=== PATIENT | male | born 1950 | race Asian ===

== ENCOUNTER → 2021-08-22 | Outpatient (CLI) | payer MEDICARE, MEDICAID ==
[2021-08-22 10:03] LABS: Basophils # (auto) 0 10 ^3/uL (0-0.2); Basophils % (auto) 0.7 % (0.0-2.0); Eosinophils # (auto) 0.1 10 ^3/uL (0-0.8); Hematocrit 39.2 % (41.0-53.0); Lymphocytes # (auto) 1.3 10 ^3/uL (0.4-5.4); Lymphocytes % (auto) 24.8 % (10.0-50.0); Mean Corpuscular Hemoglobin 25.1 pg (28.0-32.0); Mean Corpuscular Hgb Conc. 33.3 g/dL (32.0-36.0); Mean Corpuscular Volume 75.5 fL (80.0-100.0); Monocytes # (auto) 0.5 10 ^3/uL (0-1.3); Monocytes % (auto) 9.4 % (0.0-12.0); Neutrophils # (auto) 3.3 10 ^3/uL (1.6-8.6); Neutrophils % (auto) 64.1 % (37.0-80.0); Nucleated Red Blood Cells % 0.2 %; Red Blood Cells 5.19 10^6/uL (4.5-5.90); Red Cell Distribution Width 16.6 % (11.8-14.3); White Blood Cell 5.2 10^3/uL (4.4-10.8)
[2021-08-22 10:18] LABS: Urine Bacteria FEW /hpf (None Seen); Urine Blood Negative /uL (Negative); Urine Hyaline Cast MANY /lpf (0 - 2); Urine Mucus FEW (None Seen); Urine Specific Gravity 1.018 (1.001-1.035); Urine WBC 3 /hpf (0 - 3)
[2021-08-22 10:32] LABS: Albumin 3.9 g/dL (3.4-5.0); Calcium 9.5 mg/dL (8.5-10.1); Potassium 4.1 mmol/L (3.5-5.1)
[2021-08-22 10:39] LABS: BUN/Creatinine Ratio 6.7; Bilirubin, Total 1.4 mg/dL (0.2-1.0)
== END | disposition home or self-care (01) ==
LOC: LAB 09:26
PROVIDERS: ATTEND Internal Medicine Nephrology
DX: G60.9 Hereditary and idiopathic neuropathy, unspecified (principal)
CPT/HCPCS: 36415; 80053; 80061; 81001; 82043; 82306; 83036; 84439; 85025

== ENCOUNTER → 2021-09-05 | Outpatient (CLI) | payer MEDICARE, MEDICAID ==
[2021-09-05 11:16] LABS: Albumin 3.9 g/dL (3.4-5.0); BUN/Creatinine Ratio 6.4; Calcium 9.9 mg/dL (8.5-10.1); Potassium 4.6 mmol/L (3.5-5.1)
[2021-09-05 11:30] LABS: Bilirubin, Total 0.6 mg/dL (0.2-1.0); Total Protein 8.7 g/dL (6.4-8.2)
[2021-09-07 10:03] LABS: Hepatitis B Surface Antibody Positive (Negative)
[2021-09-07 12:46] LABS: Hepatitis B Core IgM Negative
== END | disposition home or self-care (01) ==
LOC: LAB 10:25
PROVIDERS: ATTEND Internal Medicine Nephrology
DX: R74.01 Elevation of levels of liver transaminase levels (principal)
CPT/HCPCS: 36415; 80053; 86703; 86705; 86706; 86803; 87340

== ENCOUNTER 2022-02-07 14:39 | Emergency (ER) | payer MEDICARE, MEDICAID ==
[~2022-02-07] VITALS: Ht 177.8 cm; Wt 79.4 kg
[2022-02-07 17:24] VITALS: BP 151/81
[2022-02-07 18:23] LABS: Urine WBC None Seen /hpf (0 - 3)
[2022-02-07 18:40] LABS: Urine Bacteria NONE SEEN /hpf (None Seen); Urine Blood Negative /uL (Negative); Urine Specific Gravity 1.003 (1.001-1.035)
== END 2022-02-07 17:53 | disposition home or self-care (01) ==
LOC: EDBD 14:39 → ER 14:39
DX: F10.129 Alcohol abuse with intoxication, unspecified (principal); Y90.8 Blood alcohol level of 240 mg/100 ml or more
CPT/HCPCS: 81001

== ENCOUNTER 2022-06-27 21:33 | Inpatient (IN) | payer MEDICARE, MEDICAID ==
[~2022-06-27] VITALS: Ht 170.2 cm; Wt 57.0 kg
[2022-06-27 23:29] LABS: BUN/Creatinine Ratio 5.2; Calcium 9.3 mg/dL (8.5-10.1); Magnesium 2.2 mg/dL (1.6-2.6); Potassium 4.1 mmol/L (3.5-5.1)
[2022-06-27 23:30] LABS: Hematocrit 40.4 % (41.0-53.0); Hemoglobin 13.2 g/dL (13.5-17.5); Mean Corpuscular Hemoglobin 24.9 pg (28.0-32.0); Mean Corpuscular Hgb Conc. 32.7 g/dL (32.0-36.0); Mean Corpuscular Volume 76.1 fL (80.0-100.0); Red Cell Distribution Width 14.9 % (11.8-14.3); White Blood Cell 4.6 10^3/uL (4.4-10.8)
[2022-06-27 23:32] LABS: Bilirubin, Total 0.7 mg/dL (0.2-1.0); Total Protein 8.7 g/dL (6.4-8.2)
[2022-06-27 23:34] LABS: Basophils % (manual) 0 (0.0-2.0); Blast Cells 0; Eosinophils % (manual) 0 (0-7); Metamyelocytes % 0; Myelocytes % 0; Promyelocytes % 0; Reactive Lymphocytes 0
[2022-06-28 00:08] LABS: Blood Alcohol 365.3 mg/dL (0-5)
[2022-06-28 01:12] LABS: Band Neutrophils % (manual) 1; Lymphocytes % (manual) 20 (10.0-50.0); Monocytes % (manual) 12 (0-12)
[2022-06-28] MEDS ORDERED: ONDANSETRON HCL 4 MG/2 ML VIAL IV ONE (01:15)
[2022-06-28] MEDS ORDERED: SODIUM CHLORIDE 0.9% 1,000 ML IV ONE ×5 (01:15→21:45)
[2022-06-28 08:38] LABS: Urine WBC None Seen /hpf (0 - 3)
[2022-06-28 08:43] LABS: Urine Bacteria NONE SEEN /hpf (None Seen); Urine Blood Negative /uL (Negative); Urine Specific Gravity 1.005 (1.001-1.035)
[2022-06-28] MEDS ORDERED: THIAMINE 100mg/ml INJ (200mg/2ml VIAL) IV ONE (10:15)
[2022-06-28 10:33] LABS: Amphetamine Screen, Urine NEGATIVE (NEGATIVE); Barbiturate Scree,Urine NEGATIVE (NEGATIVE); Benzodiazephine Screen, Urine NEGATIVE (NEGATIVE); Cannabinoid Screen, Urine NEGATIVE (NEGATIVE); Cocaine Screen, Urine NEGATIVE (NEGATIVE); Opiate Scree,Urine NEGATIVE (NEGATIVE); Phencyclidine Screen, Urine NEGATIVE (NEGATIVE)
[2022-06-28] MEDS ORDERED: LORazepam 2MG/ML-1ML VIAL IV ONE ×2 (17:45→21:45)
[2022-06-28 19:12] LABS: Eosinophils # (auto) 0 10 ^3/uL (0-0.8); Hemoglobin 12.6 g/dL (13.5-17.5)
[2022-06-28 19:14] LABS: Basophils # (auto) 0.1 10 ^3/uL (0-0.2); Basophils % (auto) 2.8 % (0.0-2.0); Eosinophils % (auto) 0.4 % (0.0-7.0); Hematocrit 38.9 % (41.0-53.0); Lymphocytes # (auto) 0.7 10 ^3/uL (0.4-5.4); Lymphocytes % (auto) 13.4 % (10.0-50.0); Mean Corpuscular Hemoglobin 24.6 pg (28.0-32.0); Mean Corpuscular Hgb Conc. 32.4 g/dL (32.0-36.0); Monocytes # (auto) 0.5 10 ^3/uL (0-1.3); Monocytes % (auto) 10.3 % (0.0-12.0); Neutrophils # (auto) 3.7 10 ^3/uL (1.6-8.6); Neutrophils % (auto) 73.1 % (37.0-80.0); Red Blood Cells 5.11 10^6/uL (4.5-5.90); Red Cell Distribution Width 15.4 % (11.8-14.3)
[2022-06-28 19:29] LABS: Albumin 3.7 g/dL (3.4-5.0); BUN/Creatinine Ratio 4.9; Calcium 8.3 mg/dL (8.5-10.1); Magnesium 1.6 mg/dL (1.6-2.6); Potassium 4.3 mmol/L (3.5-5.1)
[2022-06-28 19:31] LABS: Bilirubin, Total 1.3 mg/dL (0.2-1.0); Phosphorus 1.7 mg/dL (2.5-4.90); Total Protein 7.8 g/dL (6.4-8.2)
[2022-06-28] MEDS ORDERED: THIAMINE HCL 100 MG TAB PO ONE (21:45)
[2022-06-28] MEDS ORDERED: NITROGLYCERIN 0.4 MG SL TAB SL PRN (21:45)
[2022-06-28] MEDS ORDERED: MULTIPLE VITAMIN TAB PO ONE (21:45)
[2022-06-28] MEDS ORDERED: MORPHINE SULFATE INJ 2 MG/ml SYRG IV PRN ×2 (21:45→23:45)
[2022-06-28] MEDS ORDERED: FOLIC ACID 1 MG TAB PO ONE (21:45)
[2022-06-28] MEDS ORDERED: CARVEDILOL 12.5 MG TAB PO ONE (22:45)
[2022-06-28] MEDS ORDERED: cefTRIAXone 1GM/50ML D5W 50 ML IV ONE (22:45)
[2022-06-28] MEDS ORDERED: AZITHROMYCIN 500MG/ 250ML 250 ML IV ONE (22:45)
[2022-06-28] MEDS: chlordiazePOXIDE HCL 25 MG CAP PO SCH (23:18)
[2022-06-28 23:34] LABS: INR 0.99 (0.9-1.15)
[2022-06-28] MEDS: MAGNESIUM SULFATE 1GM/100ML 100 ML IV SCH ×2 (23:35→23:44)
[2022-06-28 23:39] LABS: Magnesium 1.5 mg/dL (1.6-2.6)
[2022-06-29 02:47] VITALS: BP 156/90
[2022-06-29] MEDS: hydrALAZINE HCL 20 MG/ML VL IV PRN (03:19)
[2022-06-29 05:00] VITALS: BP 140/71
[2022-06-29] MEDS: chlordiazePOXIDE HCL 25 MG CAP PO SCH ×2 (05:16→13:50)
[2022-06-29 06:08] LABS: Red Blood Cells 4.73 10^6/uL (4.5-5.90); Red Cell Distribution Width 15.3 % (11.8-14.3)
[2022-06-29 06:11] LABS: Hematocrit 35.9 % (41.0-53.0); Hemoglobin 11.7 g/dL (13.5-17.5); Mean Corpuscular Hemoglobin 24.8 pg (28.0-32.0); Mean Corpuscular Hgb Conc. 32.8 g/dL (32.0-36.0); Mean Corpuscular Volume 75.8 fL (80.0-100.0); White Blood Cell 3.8 10^3/uL (4.4-10.8)
[2022-06-29 06:32] LABS: Basophils % (manual) 0 (0.0-2.0); Blast Cells 0; Metamyelocytes % 0; Myelocytes % 0; Promyelocytes % 0; Reactive Lymphocytes 0
[2022-06-29 06:37] LABS: Calcium 7.8 mg/dL (8.5-10.1); Potassium 3.5 mmol/L (3.5-5.1)
[2022-06-29 06:39] LABS: BUN/Creatinine Ratio 9.4
[2022-06-29 08:00] VITALS: BP_SYST 124; BP_SYST 158; BP_DIAS 48; BP_DIAS 84
[2022-06-29 08:46] LABS: Band Neutrophils % (manual) 13; Eosinophils % (manual) 1 (0-7); Lymphocytes % (manual) 21 (10.0-50.0); Monocytes % (manual) 4 (0-12)
[2022-06-29] MEDS: cefTRIAXone 1GM/50ML D5W 50 ML IV SCH (08:56)
[2022-06-29] MEDS: FOLIC ACID 1 MG TAB PO SCH (08:57)
[2022-06-29] MEDS: THIAMINE HCL 100 MG TAB PO SCH (08:57)
[2022-06-29] MEDS: MULTIPLE VITAMIN TAB PO SCH (08:57)
[2022-06-29] MEDS: CARVEDILOL 12.5 MG TAB PO SCH ×2 (08:58→21:52)
[2022-06-29] MEDS ORDERED: AZITHROMYCIN 500MG/ 250ML 250 ML IV SCH (10:00)
[2022-06-29] MEDS: NICOTINE 7MG/24HR TOPICAL PATCH TD SCH (10:04)
[2022-06-29 12:00] VITALS: BP 122/67
[2022-06-29] MEDS: CLINDAMYCIN 300MG IV 50 ML IV SCH ×2 (13:50→22:02)
[2022-06-29] MEDS: LORazepam 2MG/ML-1ML VIAL IV PRN ×2 (15:05→21:45)
[2022-06-29 16:00] VITALS: BP 162/78
[2022-06-29 22:00] VITALS: BP 167/76
[2022-06-30] MEDS: chlordiazePOXIDE HCL 25 MG CAP PO SCH ×2 (00:59→13:00)
[2022-06-30 05:00] VITALS: BP 143/80
[2022-06-30] MEDS: CLINDAMYCIN 300MG IV 50 ML IV SCH ×3 (05:30→22:43)
[2022-06-30 08:57] VITALS: BP 176/61
[2022-06-30] MEDS: NICOTINE 7MG/24HR TOPICAL PATCH TD SCH (10:10)
[2022-06-30] MEDS: THIAMINE HCL 100 MG TAB PO SCH (10:15)
[2022-06-30] MEDS: MULTIPLE VITAMIN TAB PO SCH (10:15)
[2022-06-30] MEDS: FOLIC ACID 1 MG TAB PO SCH (10:15)
[2022-06-30] MEDS: CARVEDILOL 12.5 MG TAB PO SCH ×2 (10:17→22:44)
[2022-06-30] MEDS: cefTRIAXone 1GM/50ML D5W 50 ML IV SCH (10:28)
[2022-06-30 13:00] VITALS: BP 183/90
[2022-06-30] MEDS: LORazepam 2MG/ML-1ML VIAL IV PRN (16:00)
[2022-06-30] MEDS ORDERED: ACETAMINOPHEN 325 MG TAB PO PRN (16:30)
[2022-06-30 16:53] VITALS: BP 161/89
[2022-06-30 22:00] VITALS: BP 135/89
[2022-07-01] MEDS: chlordiazePOXIDE HCL 25 MG CAP PO SCH ×2 (00:11→12:39)
[2022-07-01] MEDS: CLINDAMYCIN 300MG IV 50 ML IV SCH ×2 (06:02→14:30)
[2022-07-01 09:00] VITALS: BP 134/67
[2022-07-01] MEDS ORDERED: FOLI1TAB6 PO (09:37)
[2022-07-01] MEDS ORDERED: CHL25C PO (09:37)
[2022-07-01] MEDS ORDERED: CLIN300C8 PO (09:37)
[2022-07-01] MEDS ORDERED: THIA100T13 PO (09:37)
[2022-07-01 09:50] VITALS: BP 134/67
[2022-07-01] MEDS: FOLIC ACID 1 MG TAB PO SCH (10:24)
[2022-07-01] MEDS: cefTRIAXone 1GM/50ML D5W 50 ML IV SCH (10:24)
[2022-07-01] MEDS: CARVEDILOL 12.5 MG TAB PO SCH (10:25)
[2022-07-01] MEDS: MULTIPLE VITAMIN TAB PO SCH (10:25)
[2022-07-01] MEDS: THIAMINE HCL 100 MG TAB PO SCH (10:26)
[2022-07-01] MEDS: NICOTINE 7MG/24HR TOPICAL PATCH TD SCH (10:27)
[2022-07-01 13:00] VITALS: BP 127/70
[2022-07-01 17:00] VITALS: BP 164/95
[2022-07-01] MEDS: hydrALAZINE HCL 20 MG/ML VL IV PRN (17:38)
[2022-07-02] MEDS ORDERED: chlordiazePOXIDE HCL 25 MG CAP PO SCH (01:00)
== END 2022-07-01 19:06 | disposition home or self-care (01) | DRG 91 ==
LOC: ER 21:33 → EDBD 21:33 → TELE 06-28 22:22 → TELE-CENTR 06-28 23:37
PROVIDERS: ADMIT Registered Nurse; ATTEND Family Medicine
DX: G92.8 Other toxic encephalopathy (principal); J69.0 Pneumonitis due to inhalation of food and vomit; F10.139 Alcohol abuse with withdrawal, unspecified; F17.210 Nicotine dependence, cigarettes, uncomplicated; I10 Essential (primary) hypertension; S40.011A Contusion of right shoulder, initial encounter; E86.0 Dehydration; F10.129 Alcohol abuse with intoxication, unspecified; D69.59 Other secondary thrombocytopenia; D69.6 Thrombocytopenia, unspecified; Y90.8 Blood alcohol level of 240 mg/100 ml or more; Z20.822 Contact with and (suspected) exposure to COVID-19; E78.00 Pure hypercholesterolemia, unspecified; Z71.41 Alcohol abuse counseling and surveillance of alcoholic; W18.39XA Other fall on same level, initial encounter; Y93.89 Activity, other specified; Y92.89 Other specified places as the place of occurrence of the external cause; Y99.8 Other external cause status
CPT/HCPCS: 36415; 70450; 71045; 72125; 73030; 73070; 76705; 80048; 80053; 80061; 80307; 80320; 81001; 82150; 83036; 83690; 83735; 84100; 84443; 85007; 85025; 85027; 85610; 87040; 87426; 87804; 93005; 93306; 96361; 96374; 96375; G0378; J0696; J2405; J3490

== ENCOUNTER → 2022-10-09 | Outpatient (CLI) | payer MEDICARE, MEDICAID ==
[~2022-10-09] MED LIST: CHL25C PO; CLIN300C8 PO; FOLI1TAB6 PO; THIA100T13 PO
[2022-10-09 12:10] LABS: Basophils # (auto) 0 10 ^3/uL (0-0.2); Eosinophils # (auto) 0.1 10 ^3/uL (0-0.8); Hemoglobin 12.9 g/dL (13.5-17.5); Monocytes # (auto) 0.4 10 ^3/uL (0-1.3); Red Cell Distribution Width 14.8 % (11.8-14.3); White Blood Cell 4.5 10^3/uL (4.4-10.8)
[2022-10-09 12:13] LABS: Basophils % (auto) 1.1 % (0.0-2.0); Eosinophils % (auto) 1.4 % (0.0-7.0); Hematocrit 39.7 % (41.0-53.0); Lymphocytes # (auto) 1.7 10 ^3/uL (0.4-5.4); Lymphocytes % (auto) 38.4 % (10.0-50.0); Mean Corpuscular Hemoglobin 23.6 pg (28.0-32.0); Mean Corpuscular Hgb Conc. 32.5 g/dL (32.0-36.0); Mean Corpuscular Volume 72.7 fL (80.0-100.0); Neutrophils # (auto) 2.3 10 ^3/uL (1.6-8.6); Neutrophils % (auto) 50.1 % (37.0-80.0); Nucleated Red Blood Cells % 1.2 %; Red Blood Cells 5.47 10^6/uL (4.5-5.90)
[2022-10-09 12:21] LABS: Albumin 3.8 g/dL (3.4-5.0); BUN/Creatinine Ratio 12.8; Calcium 10.2 mg/dL (8.5-10.1); Potassium 4.4 mmol/L (3.5-5.1); Total Protein 8.2 g/dL (6.4-8.2)
[2022-10-09 12:23] LABS: Bilirubin, Total 0.4 mg/dL (0.2-1.0)
[2022-10-09 12:35] LABS: Urine Bacteria NONE SEEN /hpf (None Seen); Urine Blood Negative /uL (Negative); Urine WBC 1 /hpf (0 - 3)
== END | disposition home or self-care (01) ==
LOC: LAB 10:47
PROVIDERS: ATTEND Internal Medicine
DX: I10 Essential (primary) hypertension (principal); D50.9 Iron deficiency anemia, unspecified; D69.6 Thrombocytopenia, unspecified; K70.9 Alcoholic liver disease, unspecified; Z29.9 Encounter for prophylactic measures, unspecified
CPT/HCPCS: 36415; 80053; 80061; 81001; 83036; 84439; 84443; 85025

== ENCOUNTER 2024-03-18 18:17 | Emergency (ER) | payer MEDICARE, MEDICAID ==
[~2024-03-18] VITALS: Ht 165.1 cm; Wt 68.1 kg
[~2024-03-18 18:17] MED LIST changes: +CLIN1CAP70 PO; -CLIN300C8 PO; +FOLI-119 PO; -FOLI1TAB6 PO
[2024-03-18] MEDS: SODIUM CHLORIDE 0.9% 1,000 ML IV ONE (18:56)
[2024-03-18] MEDS: ONDANSETRON HCL 4 MG/2 ML VIAL IV ONE (19:50)
[2024-03-18] MEDS: ACETAMINOPHEN IV 1000 MG/100ML (10MG/ML) IV STA (19:53)
[2024-03-18 19:59] LABS: Chloride 96 mmol/L (98-107); Potassium 4.1 mmol/L (3.5-5.1); Sodium 129 mmol/L (136-145)
[2024-03-18 20:00] LABS: Calcium 9.4 mg/dL (8.7-10.4)
[2024-03-18 20:02] LABS: Basophils # (auto) 0 10 ^3/uL (0-0.2); Eosinophils # (auto) 0 10 ^3/uL (0-0.8); Hemoglobin 12.5 g/dL (13.5-17.5); Lymphocytes # (auto) 1.5 10 ^3/uL (0.4-5.4); Monocytes # (auto) 0.4 10 ^3/uL (0-1.3); Nucleated Red Blood Cells % 0.2 %
[2024-03-18 20:04] LABS: Basophils % (auto) 0.7 % (0.0-2.0); Eosinophils % (auto) 0.6 % (0.0-7.0); Hematocrit 37.6 % (41.0-53.0); Mean Corpuscular Hemoglobin 25.6 pg (28.0-32.0); Mean Corpuscular Hgb Conc. 33.3 g/dL (32.0-36.0); Mean Corpuscular Volume 76.9 fL (80.0-100.0); Monocytes % (auto) 7.5 % (0.0-12.0); Neutrophils % (auto) 60.2 % (37.0-80.0); Red Cell Distribution Width 14.4 % (11.8-14.3)
[2024-03-18 20:05] LABS: Glucose 104 mg/dL (74-106)
[2024-03-18 20:14] LABS: Blood Alcohol 315.6 mg/dL (<10)
[2024-03-18 20:15] LABS: BUN/Creatinine Ratio 6.8 (10.0-20.0); Blood Urea Nitrogen < 5 mg/dL (9-23)
[2024-03-18 20:22] LABS: Anion Gap 10 (5-15); Carbon Dioxide 23 mmol/L (20-30)
[2024-03-18 21:39] LABS: Platelet Estimate Decreased
[2024-03-18 21:40] LABS: Target Cell FEW
[2024-03-19 03:39] VITALS: BP 111/75; PULSE 64; RESP 14; TEMP 97.6; O2SAT 99
== END 2024-03-19 04:50 | disposition short-term general hospital (02) ==
LOC: EDBD 18:17 → ER 18:17
DX: F10.129 Alcohol abuse with intoxication, unspecified (principal); Z79.899 Other long term (current) drug therapy; E78.5 Hyperlipidemia, unspecified; I10 Essential (primary) hypertension
CPT/HCPCS: 36415; 70450; 80048; 80320; 84484; 85025; 96361; 96374; 96375; 99285; J2405; J7030; J0131

== ENCOUNTER 2024-07-12 19:05 | Inpatient (IN) | payer MEDICARE, MEDICAID ==
[~2024-07-12] VITALS: Ht 175.3 cm; Wt 54.9 kg
--- NOTE | 2024-07-12 19:13 | ED.PDOC ---
History of Present Illness HPI Comments 73-year-old male fell 3 days ago. Per family he has been in bed, unable to ambulate since then. Patient himself was reporting neck pain, headache, right knee pain, reported initially chest wall pain however he is denying chest wall pains this time. Patient is alert, oriented x3. Patient does not follow with any primary care provider therefore unknown medical history. Per EMS patient smells of alcohol., poor hygiene, covered in feces, bed-bound at home. Time Seen by MD: 19:00 Primary Care Provider: UNKNOWN Allergies: Coded Allergies: NO KNOWN ALLERGIES (Unverified , 06/28/22) Home Meds Active Scripts Chlordiazepoxide Hcl (Librium) 25 Mg Cp, 25 MG PO TID, #30 CAP Prov:BERT LYNN MD 07/01/22 Folic Acid (Folic Acid) 1 Mg Tab, 1 MG PO DAILY, #15 TAB Prov:BERT LYNN MD 07/01/22 Thiamine HCl (Thiamine Hydrochloride) 100 Mg Tab, 100 MG PO DAILY, #15 TAB Prov:BERT LYNN MD 07/01/22 Clindamycin Hcl (Clindamycin Hcl) 300 Mg Cap, 1 CAP PO TID, #30 CAP Prov:BERT LYNN MD 07/01/22 Information Source: Patient Mode of Arrival: Ambulatory Severity: Moderate Vital Signs Vital Signs Date Time Temp Pulse Resp B/P (MAP) Pulse Ox O2 Delivery O2 Flow Rate FiO2 07/12/24 22:19 20 92 Room Air* 0 21 07/12/24 22:00 96 166/89 (114) 07/12/24 19:15 98.0 Physical Exam General: Awake, alert and oriented. No acute distress. Skin: Generalized erythematous, blanching rash over upper extremities. Skin in warm, dry and intact. Appropriate color for ethnicity. Nailbeds pink with no cyanosis. HEENT: The head is normocephalic and atraumatic. Conjunctivae injected bilaterally. Sclera is non-icteric. EOM are intact. No signs of nystagmus. Eyel ids are normal in appearance without swelling or lesions. Oral mucosa is pink and moist Neck: The neck is supple with normal range of motion. No JVD. Positive EKG left C-spine tenderness. Cardiac: Heart rate and rhythm are normal. No murmurs, gallops, or rubs are auscultated. Respiratory: No signs of respiratory distress. Lung sounds are clear in all lobes bilaterally without rales, ronchi, or wheezes. Abdominal: Abdomen is soft, non-tender without distention. Bowel sounds are present and normoactive in all four quadrants. Extremities: Bruising over right knee. Neurological: The patient is awake, alert and oriented to person, place, and time with normal speech. Speech is clear. There is no facial asymmetry. General tremor noted. Psychiatric: Appropriate mood and affect. Good judgement and insight. No visual or auditory hallucinations. Review of Systems: REVIEW OF SYSTEMS: No fever, no chills, or fatigue HEENT: No sore throat, earache, or congestion. Positive neck pain Cardiac: No chest pain. No palpitations. Lungs: No shortness of breath or cough. GI: No nausea, no vomiting, no diarrhea, no constipation, no abdominal pain : No dysuria, frequency, or urgency. No hematuria. Musculoskeletal: No joint pain or swelling or edema. Skin: No rash or itching. Neuro: Positive headache, and generalized weakness. No dizziness, Past Medical History PAST MEDICAL HISTORY: High Lipids, HTN Surgical History: Unobtainable, Pt Confused Family History Family History: Reviewed,noncontributory to illness Social History Smoker: Non-Smoker Alcohol: Heavy Drugs: Denies Drug Use Lives In: Home Was a procedure done? Was a procedure done?: No EKG EKG : Pulse Rate (adult): 112 [place]: Normal Cardiac Rhythm: ST Block: None Hypertrophy: LAE, LVH ST: Normal Comments Nonspecific T wave abnormality, anterolateral leads ST elevation, consider anterior injury Borderline prolonged QT interval. Differential Dx Considerations may include: Head injury, neck fracture, metabolic disorder, urinary tract infection, alcohol intoxication, chronic medical condition, ACS, other X-Ray, Labs, Meds, VS Vital Signs Date Time Temp Pulse Resp B/P (MAP) Pulse Ox O2 Delivery O2 Flow Rate FiO2 07/12/24 22:19 20 92 Room Air* 0 21 07/12/24 22:00 96 15 166/89 (114) 100 07/12/24 20:12 90 12 160/84 (109) 100 07/12/24 20:03 112 07/12/24 19:21 112 12/1/24 19:15 98.0 108 16 176/98 (124) 98 Lab Test 07/12/24 22:47 07/12/24 22:20 07/12/24 20:12 Range/Units Urine Color Yellow Yellow Urine Clarity Clear Clear Urine pH 6.0 5.0-9.0 Urine Specific [place] 1.023 1.001-1.035 Urine Protein 1+ H Negative Urine Ketones 1+ H Negative Urine Blood Trace H Negative /uL Urine Nitrite Negative Negative Urine Bilirubin 1+ Negative Urine Urobilinogen 12 H Negative mg/dL Urine Leukocyte Esterase Negative Negative /uL Urine RBC 1 0 - 3 /hpf Urine WBC 1 0 - 3 /hpf Urine Squamous Epithelial Cells Few <5 /hpf Urine Bacteria None seen None Seen /hpf Urine Glucose Normal Normal mg/dL Lactic Acid Level 2.3 *H 2.3 *H 0.4-2.0 mmol/L White Blood Count 10.4 4.4-10.8 10^3/uL Red Blood Count 5.10 4.5-5.90 10^6/uL Hemoglobin 13.2 L 13.5-17.5 g/dL Hematocrit 39.5 L 41.0-53.0 % Mean Corpuscular Volume 77.4 L 80.0-100.0 fL Mean Corpuscular Hemoglobin 25.8 L 28.0-32.0 pg Mean Corpuscular Hemoglobin Concent 33.3 32.0-36.0 g/dL Red Cell Distribution Width 15.4 H 11.8-14.3 % Platelet Count 135 L 140-450 10^3/uL Mean Platelet Volume 9.5 6.9-10.8 fL Neutrophils (%) (Auto) 75.7 37.0-80.0 % Lymphocytes (%) (Auto) 7.8 L 10.0-50.0 % Monocytes (%) (Auto) 16.3 H 0.0-12.0 % Eosinophils (%) (Auto) 0.1 0.0-7.0 % Basophils (%) (Auto) 0.1 0.0-2.0 % Neutrophils # (Auto) 7.9 1.6-8.6 10 ^3/uL Lymphocytes # (Auto) 0.8 0.4-5.4 10 ^3/uL Monocytes # (Auto) 1.7 H 0-1.3 10 ^3/uL Eosinophils # (Auto) 0 0-0.8 10 ^3/uL Basophils # (Auto) 0 0-0.2 10 ^3/uL Nucleated Red Blood Cells 0.2 % Sodium Level 133 L 136-145 mmol/L Potassium Level 3.6 3.5-5.1 mmol/L Chloride Level 96 L 98-107 mmol/L Carbon Dioxide Level 20 20-31 mmol/L Anion Gap 17 H 5-15 Blood Urea Nitrogen 23 9-23 mg/dL Creatinine 0.98 0.700-1.30 mg/dL Glomerular Filtration Rate Calc 81 >90 mL/min BUN/Creatinine Ratio 23.5 H 10.0-20.0 Serum Glucose 138 H 74-106 mg/dL Calcium Level 9.3 8.7-10.4 mg/dL Total Bilirubin 1.7 H 0.2-1.0 mg/dL Aspartate Amino Transferase (AST) 73 H 13-40 U/L Alanine Aminotransferase (ALT) 96 H 7-40 U/L Alkaline Phosphatase 44 L 46-116 U/L Ammonia 24 11-32 umol/L Troponin I High Sensitivity 25 </=54 ng/L Total Protein 6.4 5.7-8.2 g/dL Albumin 3.7 3.2-4.8 g/dL Plasma/Serum Blood Alcohol < 3.0 <10 mg/dL Current Medications Medications (Trade) Dose Ordered Sig/Edmar Route Start Time Stop Time Status Last Admin Albuterol (Ventolin Medneb) 2.5 mg ONCE ONCE NEB 07/12/24 22:15 07/12/24 22:16 DC 07/12/24 22:19 Time of 1ST Reevaluation: 19:42 Reevaluation 1ST: Unchanged Patient Education/Counseling: Diagnosis, Treatment, Prognosis, Other (Need for admission) Family Education/Counseling: No Family Present Departure 1 Departure Time of Disposition: 23:22 Impression: Primary Impression: Generalized weakness Additional Impressions: Unable to ambulate Lactic acidemia Alcohol abuse Hyponatremia Disposition: ADMITTED INPATIENT Condition: Stable Comments 73-year-old male who presents to the emergency department with generalized weakness, unable to ambulate after fall several days ago. Patient has unclear past medical history. Independent interpretation: CT head negative for acute stroke hemorrhage, C-spine negative for acute fracture. Labs reviewed. Patient admitted for further treatment, evaluation and monitoring. History taken from patient and EMS. Previous records reviewed. Patient seen here recently March of this year for alcohol intoxication and fall. He was found to be hyponatremic. Patient was discharged after clinical sobriety. Differential diagnosis includes CVA, acute coronary syndrome, acute metabolic encephalopathy, alcohol intoxication, alcohol withdrawal, electrolyte imbalance, spinal cord injury, fracture, other Critical Care Note Critical Care Time?: No Stability Stability form required: No I personally scribed for NORY HADDAD MD ([email or web address]) on 07/12/24 at 19:13. Electronically submitted by Tevin Ding ([email or web address]). I personally scribed for NORY HADDAD MD ([email or web address]) on 07/12/24 at 20:03. Electronically submitted by Tevin Ding ([email or web address]). NORY HADDAD MD Jul 12, 2024 19:13
[2024-07-12 20:26] LABS: Basophils # (auto) 0 10 ^3/uL (0-0.2); Basophils % (auto) 0.1 % (0.0-2.0); Eosinophils # (auto) 0 10 ^3/uL (0-0.8); Mean Corpuscular Volume 77.4 fL (80.0-100.0); Monocytes # (auto) 1.7 10 ^3/uL (0-1.3); Nucleated Red Blood Cells % 0.2 %
[2024-07-12 20:28] LABS: Eosinophils % (auto) 0.1 % (0.0-7.0); Hematocrit 39.5 % (41.0-53.0); Hemoglobin 13.2 g/dL (13.5-17.5); Lymphocytes # (auto) 0.8 10 ^3/uL (0.4-5.4); Lymphocytes % (auto) 7.8 % (10.0-50.0); Mean Corpuscular Hemoglobin 25.8 pg (28.0-32.0); Mean Corpuscular Hgb Conc. 33.3 g/dL (32.0-36.0); Monocytes % (auto) 16.3 % (0.0-12.0); Neutrophils # (auto) 7.9 10 ^3/uL (1.6-8.6); Neutrophils % (auto) 75.7 % (37.0-80.0); Platelet Count (auto) 135 10^3/uL (140-450); Red Cell Distribution Width 15.4 % (11.8-14.3); White Blood Cell 10.4 10^3/uL (4.4-10.8)
[2024-07-12 20:43] LABS: Albumin 3.7 g/dL (3.2-4.8); Anion Gap 17 (5-15); BUN/Creatinine Ratio 23.5 (10.0-20.0); Blood Urea Nitrogen 23 mg/dL (9-23); Calcium 9.3 mg/dL (8.7-10.4); Carbon Dioxide 20 mmol/L (20-31); Potassium 3.6 mmol/L (3.5-5.1)
[2024-07-12 20:44] LABS: Total Protein 6.4 g/dL (5.7-8.2)
[2024-07-12 20:46] LABS: Lactic Acid w/Reflex 2.3 mmol/L (0.4-2.0)
[2024-07-12 20:47] LABS: Alanine Aminotransferase 96 U/L (7-40); Alkaline Phosphatase 44 U/L (46-116); Aspartate Aminotransferase 73 U/L (13-40); Bilirubin, Total 1.7 mg/dL (0.2-1.0); Blood Alcohol < 3.0 mg/dL (<10); Chloride 96 mmol/L (98-107); Glucose 138 mg/dL (74-106); Sodium 133 mmol/L (136-145)
[2024-07-12] MEDS: ALBUTEROL SULF 2.5 MG/0.5ML(0.5%) NEB SOLN NEB ONE (22:19)
--- NOTE | 2024-07-12 22:24 | DVH ---
CLINICAL INDICATION: fall, pain, bruising TECHNIQUE: 2 radiographic views of the right knee were obtained. Comparison: None FINDINGS/IMPRESSION: There is no evidence of acute fracture or dislocation. Radiopaque foreign bodies in the soft tissues over the distal femur The visualized joint space is well maintained. The alignment is anatomical. There is no radiopaque foreign body.
--- NOTE | 2024-07-12 22:31 | DVH ---
EXAM: CT HEAD WITHOUT CONTRAST INDICATION: fall TECHNIQUE: CT of the head without intravenous contrast. Radiation Dose Information: CT Dose: CTDI volume is 58.11 mGy. Dose-length product is 929.84 mGy*cm The dose indicators for CT are the volume Computed Tomography (CT) Dose Index (CTDIvol) and the Dose Length Product (DLP), and are measured in units of mGy and mGy-cm, respectively. These indicators are not patient dose, but values generated from the CT scanner acquisition factors. The report includes radiation exposure data for exposures received during this examination. COMPARISON: CT HEAD WITHOUT CONTRAST on DOS: 03/18/24, CERVICAL WITHOUT CONTRAST on DOS: 06/28/22, HEAD WITHOUT CONTRAST on DOS: 06/28/22 FINDINGS: There is no evidence of acute intracranial hemorrhage, extra-axial collection, mass effect, midline s hift, herniation or hydrocephalus. 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 The ventricles, sulci and cisterns are age appropriate. The barcenas-white differentiation is intact. Patchy periventricular and subcortical white matter hypoattenuation is nonspecific but may be related to small vessel ischemic disease. The visualized paranasal sinuses and mastoid air cells are clear. The surrounding soft tissues and osseous structures are unremarkable. IMPRESSION: 1. No acute intracranial hemorrhage. 2. Cortical atrophy 3. 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
--- NOTE | 2024-07-12 22:33 | DVH ---
CHEST RADIOGRAPH Indication: chest pain Technique: Single frontal view of the chest was obtained COMPARISON: CXRP on DOS: 06/29/22, CHEST PORTABLE on DOS: 06/29/22, CXRP on DOS: 06/27/22 FINDINGS: Lines and Tubes: None Lungs: Questionable mild interstitial pulmonary edema. Pleura: No effusion. No pneumothorax. Cardiomediastinal contours: Borderline cardiomegaly Bones: Unremarkable IMPRESSION: 1. Questionable mild interstitial pulmonary edema.
[2024-07-12 22:48] LABS: Urine Bacteria None Seen /hpf (None Seen)
--- NOTE | 2024-07-12 22:48 | DVH ---
EXAM: CT CERVICAL WITHOUT CONTRAST HISTORY: neck pain s/p fall COMPARISON: CT HEAD WITHOUT CONTRAST on DOS: 03/18/24, CERVICAL WITHOUT CONTRAST on DOS: 06/28/22, HEAD WITHOUT CONTRAST on DOS: 06/28/22 CTDIvol 14 mGy, DLP 352 mGy*cm. TECHNIQUE: Multiple axial CT images of the spine were obtained using bone algorithm. Axial and coron al reformatting was done. Bone and soft tissue windows were reviewed. FINDINGS: No CT evidence of definite acute fracture, spinal dislocation, or significant appearing acute subluxa tion is seen. The visualized paraspinal soft tissues are grossly unremarkable. Multilevel degenerative changes of the spine. IMPRESSION: 1. No definite CT evidence of acute fracture or dislocation of the bony cervical spine.
[2024-07-12 23:03] LABS: Urine Blood TRACE /uL (Negative); Urine Clarity Clear (Clear); Urine Color Yellow (Yellow); Urine Protein, UAD 1+ (Negative); Urine Specific Gravity 1.023 (1.001-1.035); Urine Urobilinogen 12 mg/dL (Negative); Urine WBC 1 /hpf (0 - 3)
[2024-07-12] MEDS ORDERED: ACETAMINOPHEN 325 MG TAB PO PRN (23:45)
[2024-07-12] MEDS ORDERED: ONDANSETRON HCL 4 MG/2 ML VIAL IV PRN ×2 (23:45)
[2024-07-12] MEDS ORDERED: HYDROcodone-ACET 5/325MG TAB PO PRN (23:45)
[2024-07-12] MEDS: LORazepam 2MG/ML-1ML VIAL IV SCH ×2 (23:45)
[2024-07-12] MEDS ORDERED: MAALOX PLUS or MAALOX 30 ML PO PRN (23:45)
[2024-07-12] MEDS ORDERED: MORPHINE SULFATE INJ 2 MG/ml SYRG IV PRN (23:45)
--- NOTE | 2024-07-12 23:53 | DVHHP2 ---
History of Present Illness Reason for Visit: weakness History of Present Illness 73-year-old male with past medical history of hypertension hyperlipidemia comes to the ED for evaluation of a fall patient states that while he was walking he slipped and fell reporting multiple injuries which occurred approximately 3 days ago patient reports pain in his head his neck his knee as well as reporting pain in his chest but does not describe the pain is cardiac in nature patient was evaluated in the ED suspected to be acutely intoxicated at the time plan as of now is for further evaluation and acute management and possible monitoring for acute alcohol withdrawal ALCOHOL: heavy Review of Systems Constitutional: Yes: Weakness; No: Fever, Chills, Sweats, Malaise, Other Eyes: No: Pain, Vision change, Conjunctivae inflammation, Eyelid inflammation, Other, Redness ENT: No: Ear pain, Ear discharge, Nose pain, Nose discharge, Nose congestion, Mouth pain, Mouth swelling, Throat pain, Throat swelling, Other Respiratory: No: Cough, Dry, Shortness of breath, SOB with excertion, Wheezing, Hemoptysis, Pleuritic Pain, Sputum, Wheezing, Other Cardiovascular: Palpitations; No: Chest Pain, Orthopnea, Paroxysmal Noc. Dyspnea, Edema, Lt Headedness, Other Gastrointestinal: No: Nausea, Vomiting, Abdominal Pain, Diarrhea, Constipation, Melena, Hematochezia, Other Genitourinary: No Dysuria, No Frequency, No Incontinence, No Hematuria, No Retention, No Other Musculoskeletal: No: other, neck pain, shoulder pain, arm pain, back pain, hand pain, leg pain, foot pain Skin: No: Rash, Lesions, Jaundice, Bruising, Other Neurological: Weakness; No: Numbness, Incoordination, Change in speech, Confusion, Seizures, Other Allergies: Coded Allergies: NO KNOWN ALLERGIES (Unverified , 06/28/22) Exam Vital Signs Vital Signs Date Time Temp Pulse Resp B/P (MAP) Pulse Ox O2 Delivery O2 Flow Rate FiO2 07/12/24 22:19 20 92 Room Air* 0 21 07/12/24 22:00 96 166/89 (114) 07/12/24 19:15 98.0 General Appearance: Alert, Oriented X3, mild distress HEENT: Atraumatic, PERRLA Respiratory: Clear to auscultation, Normal air movement Cardiovascular: Regular rate, Normal S1 Abdominal: Normal bowel sounds, Soft Extremities: No clubbing, No cyanosis Skin: No rashes, No breakdown Neuro: Normal gait, Normal speech Psych/Mental Status: Mood NL Labs/Xrays Labs Test 07/12/24 22:47 07/12/24 22:20 07/12/24 20:12 Range/Units Urine Color Yellow Yellow Urine Clarity Clear Clear Urine pH 6.0 5.0-9.0 Urine Specific [place] 1.023 1.001-1.035 Urine Protein 1+ H Negative Urine Ketones 1+ H Negative Urine Blood Trace H Negative /uL Urine Nitrite Negative Negative Urine Bilirubin 1+ Negative Urine Urobilinogen 12 H Negative mg/dL Urine Leukocyte Esterase Negative Negative /uL Urine RBC 1 0 - 3 /hpf Urine WBC 1 0 - 3 /hpf Urine Squamous Epithelial Cells Few <5 /hpf Urine Bacteria None seen None Seen /hpf Urine Glucose Normal Normal mg/dL Lactic Acid Level 2.3 *H 0.4-2.0 mmol/L White Blood Count 10.4 4.4-10.8 10^3/uL Red Blood Count 5.10 4.5-5.90 10^6/uL Hemoglobin 13.2 L 13.5-17.5 g/dL Hematocrit 39.5 L 41.0-53.0 % Mean Corpuscular Volume 77.4 L 80.0-100.0 fL Mean Corpuscular Hemoglobin 25.8 L 28.0-32.0 pg Mean Corpuscular Hemoglobin Concent 33.3 32.0-36.0 g/dL Red Cell Distribution Width 15.4 H 11.8-14.3 % Platelet Count 135 L 140-450 10^3/uL Mean Platelet Volume 9.5 6.9-10.8 fL Neutrophils (%) (Auto) 75.7 37.0-80.0 % Lymphocytes (%) (Auto) 7.8 L 10.0-50.0 % Monocytes (%) (Auto) 16.3 H 0.0-12.0 % Eosinophils (%) (Auto) 0.1 0.0-7.0 % Basophils (%) (Auto) 0.1 0.0-2.0 % Neutrophils # (Auto) 7.9 1.6-8.6 10 ^3/uL Lymphocytes # (Auto) 0.8 0.4-5.4 10 ^3/uL Monocytes # (Auto) 1.7 H 0-1.3 10 ^3/uL Eosinophils # (Auto) 0 0-0.8 10 ^3/uL Basophils # (Auto) 0 0-0.2 10 ^3/uL Nucleated Red Blood Cells 0.2 % Sodium Level 133 L 136-145 mmol/L Potassium Level 3.6 3.5-5.1 mmol/L Chloride Level 96 L 98-107 mmol/L Carbon Dioxide Level 20 20-31 mmol/L Anion Gap 17 H 5-15 Blood Urea Nitrogen 23 9-23 mg/dL Creatinine 0.98 0.700-1.30 mg/dL Glomerular Filtration Rate Calc 81 >90 mL/min BUN/Creatinine Ratio 23.5 H 10.0-20.0 Serum Glucose 138 H 74-106 mg/dL Calcium Level 9.3 8.7-10.4 mg/dL Total Bilirubin 1.7 H 0.2-1.0 mg/dL Aspartate Amino Transferase (AST) 73 H 13-40 U/L Alanine Aminotransferase (ALT) 96 H 7-40 U/L Alkaline Phosphatase 44 L 46-116 U/L Ammonia 24 11-32 umol/L Troponin I High Sensitivity 25 </=54 ng/L Total Protein 6.4 5.7-8.2 g/dL Albumin 3.7 3.2-4.8 g/dL Plasma/Serum Blood Alcohol < 3.0 <10 mg/dL Assessment/Plan Assessment/Plan Admit to telemetry General weakness Multi trauma evaluation Status post fall ETOH abuse Signs of elevated liver enzymes Bilirubinemia noted in the urine Hypertensive urgency Plan discussed with: Patient My Orders Orders - KOREY ELLIOTT MD Procedure Category Date Status Time Librium PHA 07/13/24 Verified 10:00 Zofran PHA 07/12/24 Verified 23:45 0.9% Nacl 250mls/Hr PHA 07/12/24 Verified 23:45 Folic Acid 1mg Po PHA 07/13/24 Verified Daily 10:00 Mvi Tablet Po Daily PHA 07/13/24 Verified 10:00 Thiamine 100mg Po Now PHA 07/12/24 Verified 23:45 Mvi 1 Tablet Po Now PHA 07/12/24 Verified 23:45 Ativan 2mg Iv Stat PHA 07/12/24 Verified 23:45 Ativan 2mg Iv Q2hr Atc PHA 07/12/24 Verified 23:45 Ativan 4mg Iv Q2hr Atc PHA 07/12/24 Verified 23:45 Etoh Withdrawal [facility] 07/12/24 Verified Assessment 23:37 Etoh Withdrawal [facility] 07/12/24 Verified Assessment 23:37 Admit ADMIT 07/12/24 Verified 23:37 Code Status CODE 07/12/24 Verified 23:37 Vital Signs [facility] 07/12/24 Verified 23:37 Review Orders With [facility] 07/12/24 Verified Adm. 23:37 Regular Diet DIET 07/13/24 Verified Breakfast Alum & Mag [facility] 07/12/24 Verified Hydrox-Simethicone 23:45 Docusate Sodium [facility] 07/12/24 Verified Capsule (Colace 23:45 Acetaminophen Tablet [facility] 07/12/24 Verified (Tylenol Tablet) 23:45 Notify Md Of Changes [facility] 07/12/24 Verified From Base 23:37 Advance Directive [facility] 07/12/24 Verified 23:37 Basic Metabolic Panel LAB 07/13/24 Verified 04:00 Complete Blood Count LAB 07/13/24 Verified 04:00 Patient Condition ORDERS 07/12/24 Verified 23:37 Allergies [facility] 07/12/24 Verified 23:37 Hydrocodone-Acet [facility] 07/12/24 Verified 5/325mg Tab ([place] 23:45 Ondansetron Hcl [facility] 07/12/24 Verified (Zofran) 23:45 Morphine 2mg Iv Q4hprn [facility] 07/12/24 Verified 23:45 Notify Md Of Changes [facility] 07/12/24 Verified From Base 23:37 Associate Professor Of Automation For [facility] 07/12/24 Verified 24 Hours 23:37 Emergency Dysrhythmia [facility] 07/12/24 Verified Protocol 23:37 Rhythm Strips Once [facility] 07/12/24 Verified Every Shift 23:37 Oxygen By Nasal 07/12/24 Verified Cannula 23:37 Problem List: (1) Alcohol abuse (2) Hyponatremia (3) Generalized weakness (4) Unable to ambulate (5) Lactic acidemia (6) Falls (7) Alcohol intoxication Date of Service: Jul 12, 2024 Billing Provider: KOREY ELLIOTT MD Common Visit Codes: [id number] INP/OBS CARE (HIGH) KOREY ELLIOTT MD Jul 12, 2024 23:53
[2024-07-13] MEDS: THIAMINE HCL 100 MG TAB PO ONE
[2024-07-13] MEDS: MULTIPLE VITAMIN TAB PO ONE
[2024-07-13] MEDS: LORazepam 2MG/ML-1ML VIAL IV ONE (00:01)
[2024-07-13] MEDS: SODIUM CHLORIDE 0.9% 1,000 ML IV ONE ×2 (00:01→01:53)
[2024-07-13 06:46] LABS: Basophils # (auto) 0 10 ^3/uL (0-0.2); Basophils % (auto) 0.1 % (0.0-2.0); Eosinophils # (auto) 0 10 ^3/uL (0-0.8); Hematocrit 34.7 % (41.0-53.0); Hemoglobin 11.7 g/dL (13.5-17.5); Lymphocytes # (auto) 0.8 10 ^3/uL (0.4-5.4); Lymphocytes % (auto) 7.9 % (10.0-50.0); Mean Corpuscular Hemoglobin 26.1 pg (28.0-32.0); Mean Corpuscular Hgb Conc. 33.6 g/dL (32.0-36.0); Mean Corpuscular Volume 77.6 fL (80.0-100.0); Monocytes # (auto) 1.6 10 ^3/uL (0-1.3); Monocytes % (auto) 15.4 % (0.0-12.0); Neutrophils # (auto) 7.9 10 ^3/uL (1.6-8.6); Neutrophils % (auto) 76.6 % (37.0-80.0); Nucleated Red Blood Cells % 0.1 %; Platelet Count (auto) 135 10^3/uL (140-450); Red Blood Cells 4.47 10^6/uL (4.5-5.90); Red Cell Distribution Width 15.7 % (11.8-14.3); White Blood Cell 10.3 10^3/uL (4.4-10.8)
--- NOTE | 2024-07-13 06:47 | ECG ---
[facility] Test Date: 2024-07-12 Test Time: 19:21:19 Pat Name: ORLIN WHITEHEAD Department: ED Room: 0270 Gender: M Dental Receptionist: JULIETTE : 1950 Requested By: NORY HADDAD Order Number: [id number] Reading MD: Dimitris Gomez Measurements Intervals [place] Rate: 112 P: 64 ND: 139 QRS: -40 QRSD: 80 T: 85 QT: 355 QTc: 485 Interpretive Statements Sinus tachycardia LAE, consider biatrial enlargement Left ventricular hypertrophy Nonspecific T abnrm, anterolateral leads ST elevation, consider anterior injury Borderline prolonged QT interval Artifact in lead(s) I,II,aVR,aVL,aVF Electronically Signed On 07-15-2024 16:12:20 PST by Dimitris Gomez Please click the below link to view image of tracing.
[2024-07-13 06:51] LABS: Anion Gap 12 (5-15); Calcium 8.9 mg/dL (8.7-10.4); Carbon Dioxide 23 mmol/L (20-31); Chloride 102 mmol/L (98-107); Sodium 137 mmol/L (136-145)
[2024-07-13 06:57] LABS: BUN/Creatinine Ratio 21.3 (10.0-20.0); Blood Urea Nitrogen 17 mg/dL (9-23); Glucose 106 mg/dL (74-106)
[2024-07-13 06:59] LABS: Potassium 3.3 mmol/L (3.5-5.1)
[2024-07-13 07:33] VITALS: PULSE 99; RESP 16; O2SAT 97
[2024-07-13] MEDS: chlordiazePOXIDE HCL 25 MG CAP PO SCH (11:08)
[2024-07-13] MEDS: FOLIC ACID 1 MG TAB PO SCH (11:11)
[2024-07-13] MEDS: MULTIPLE VITAMIN TAB PO SCH (11:12)
--- NOTE | 2024-07-13 16:50 | DVHPN2 ---
Subjective Patient slow to respond. Encephalopathic. Reviewed: Care Plan, H&P, Labs Changes from previous H/P or p: No Changes Eyes: No Pain, No Vision change, No Conjunctivae inflammation, No Eyelid inflammation, No Other, No Redness ENT: No Ear pain, No Ear discharge, No Nose pain, No Nose discharge, No Nose congestion, No Mouth pain, No Mouth swelling, No Throat pain, No Throat swelling, No Other Cardiovascular: No Chest Pain; Palpitations; No Orthopnea, No Paroxysmal Noc. Dyspnea, No Edema, No Lt Headedness, No Other Respiratory: No Cough, No Dry, No Shortness of breath, No SOB with excertion, No Wheezing, No Hemoptysis, No Pleuritic Pain, No Sputum, No Other Gastrointestinal: No Nausea, No Vomiting, No Abdominal Pain, No Diarrhea, No Constipation, No Melena, No Hematochezia, No Other Genitourinary: No Dysuria, No Frequency, No Incontinence, No Hematuria, No Retention, No Other Musculoskeletal: No other, No neck pain, No shoulder pain, No arm pain, No back pain, No hand pain, No leg pain, No foot pain Skin: No Rash, No Lesions, No Jaundice, No Bruising, No Other Objective Vitals Vital Signs Date Time Temp Pulse Resp B/P (MAP) Pulse Ox O2 Delivery O2 Flow Rate FiO2 07/13/24 13:30 111 20 151/85 (107) 98 07/13/24 07:33 Nasal Cannula* 2 28 07/13/24 07:33 97.4 97.4 Intake/Output Intake and Output 07/13/24 07:00 Intake Total 2000 ml Balance 2000 ml Intake IV Total 2000 ml General Appearance: Alert, No acute distress, Other (Encephalopathic) HEENT: Atraumatic, PERRLA Chest/Breasts: Other (Ecchymosis to chest) Cardiovascular: Normal S1, Normal S2, Other (Sinus tachycardia) Musculoskeletal: Normal sensory function, Normal motor function Neuro: Normal speech Psych/Mental Status: Mental status NL (Altered mental status), Mood NL (Withdrawn/sleepy) Medications Current Medications Medications Dose Ordered Sig/Edmar Route Start Time Stop Time Status Last Admin Dose Admin Chlordiazepoxide HCl 25 mg DAILY PO 07/13/24 10:00 07/13/24 11:08 25 MG Ondansetron HCl 4 mg Q4HPRN PRN IV 07/12/24 23:45 Folic Acid 1 mg DAILY PO 07/13/24 10:00 07/13/24 11:11 1 MG Multivitamins 1 tab DAILY PO 07/13/24 10:00 07/13/24 11:12 1 TAB Lorazepam 2 mg Q2H IV 07/12/24 23:45 07/13/24 05:58 2 MG Lorazepam 4 mg Q2H IV 07/12/24 23:45 Al Hydrox/Mg Hydrox/Simethicone 30 ml Q6HP PRN PO 07/12/24 23:45 Docusate Sodium 100 mg BIDPRN PRN PO 07/12/24 23:45 Acetaminophen 650 mg Q6HP PRN PO 07/12/24 23:45 Acetaminophen/ Hydrocodone Bitart 1 tab Q4HP PRN PO 07/12/24 23:45 Morphine Sulfate 2 mg Q4HPRN PRN IV 07/12/24 23:45 Laboratory Results Laboratory Tests 07/13/24 05:48 Chemistry Test 07/12/24 20:12 07/13/24 05:48 Albumin 3.7 g/dL (3.2-4.8) Calcium Level 9.3 mg/dL (8.7-10.4) 8.9 mg/dL (8.7-10.4) Total Protein 6.4 g/dL (5.7-8.2) LFT Test 07/12/24 20:12 Alanine Aminotransferase (ALT) 96 U/L (7-40) H Alkaline Phosphatase 44 U/L (46-116) L Aspartate Amino Transferase (AST) 73 U/L (13-40) H Total Bilirubin 1.7 mg/dL (0.2-1.0) H Urinalysis Test 07/12/24 22:47 Urine Color Yellow (Yellow) Urine Clarity Clear (Clear) Urine pH 6.0 (5.0-9.0) Urine Specific [place] 1.023 (1.001-1.035) Urine Protein 1+ (Negative) H Urine Ketones 1+ (Negative) H Urine Blood Trace /uL (Negative) H Urine Nitrite Negative (Negative) Urine Bilirubin 1+ (Negative) Urine Urobilinogen 12 mg/dL (Negative) H Urine Leukocyte Esterase Negative /uL (Negative) Urine RBC 1 /hpf (0 - 3) Urine WBC 1 /hpf (0 - 3) Urine Squamous Epithelial Cells Few /hpf (<5) Urine Bacteria None seen /hpf (None Seen) Urine Glucose Normal mg/dL (Normal) Labs and/or images reviewed: Labs reviewed by me, Image(s) reviewed by me Assessment/Plan Assessment/Plan Impression: -probable toxic metabolic encephalopathy secondary to EtOH versus Librium -accelerated hypertension -microcytic, hypochromic anemia -thrombocytopenia -reported EtOH history -hypokalemia Plan: -banana bag -hold sedatives, Librium 10 mg p.o. q.6 as needed for signs of alcohol withdrawal -start metoprolol tartrate 25 mg p.o. b.i.d. -check vitamin-D, TSH -PUD prophylaxis -potassium replacement -physical therapy consultation Total time spent with patient discussing and formulating plan of care: 35 minutes. This medical document was created using an electronic medical record system with [employer] dictation system. Although this document has been carefully reviewed, there may still be some phonetic and typographical errors. These areas are purely typographical due to imperfections of the software programs, and do not reflect any compromise in the patient's medical care. Plan discussed with: Patient, Other (RN) My Orders Orders - JOY SILVA NP Procedure Category Date Status Time Banana Bag D5w PHA 07/13/24 Verified 18:00 Vitamin D 25-Hydroxy LAB 07/13/24 Verified D2 + D3 16:43 Vitamin B12 LAB 07/13/24 Verified 16:43 Chlordiazepoxide Hcl PHA 07/13/24 Verified Capsule (Librium Ca 16:45 Potassium Effervesent PHA 07/13/24 Verified Tab (Klor-Con/Ef) 16:45 Comprehensive LAB 07/14/24 Verified Metabolic Panel 04:00 Date of Service: Jul 13, 2024 Billing Provider: JOY SILVA NP Common Visit Codes: [id number] INP/OBS CARE(HIGH) JOY SILVA NP Jul 13, 2024 16:50
[2024-07-13] MEDS: POTASSIUM EFFERVESENT TAB 25 MEQ PO ONE (17:06)
[2024-07-13] MEDS: FOLIC ACID 1 MG, MULTIPLE VITAMIN 10 ML, MAGNESIUM SULF SDV 50% 8 MEQ, THIAMINE INJ 100... INJ SCH (18:55)
[2024-07-13] MEDS ORDERED: POTASSIUM CHL 20MEQ/100ML 100 ML IV ONE (19:30)
[2024-07-13 19:40] VITALS: PULSE 111; RESP 20; O2SAT 95
[2024-07-13] MEDS: chlordiazePOXIDE HCL 5 MG CAP PO PRN (20:32)
[2024-07-13] MEDS ORDERED: dilTIAZem 25 MG/5 ML VIAL IV ONE (20:45)
[2024-07-13 22:30] VITALS: BP 163/92; PULSE 112; RESP 22; TEMP 102.1; O2SAT 92
[2024-07-13] MEDS: METOPROLOL TARTRATE 25 MG TAB PO SCH (22:45)
[2024-07-14] VITALS (9 sets, daily range): BP systolic 115–165; BP diastolic 71–90; PULSE 75–97; RESP 16–19; TEMP 98.5–102.4; O2SAT 92–98
[2024-07-14] MEDS: diphenhdrAMINE HCL 25 MG CAP PO ONE (06:13)
[2024-07-14] MEDS: hydrALAZINE HCL 20 MG/ML VL IV ONE (06:14)
[2024-07-14 06:48] LABS: Alanine Aminotransferase 69 U/L (7-40); Albumin 3.5 g/dL (3.2-4.8); Alkaline Phosphatase 48 U/L (46-116); Anion Gap 14 (5-15); Aspartate Aminotransferase 111 U/L (13-40); BUN/Creatinine Ratio 14.5 (10.0-20.0); Blood Urea Nitrogen 10 mg/dL (9-23); Calcium 9.1 mg/dL (8.7-10.4); Carbon Dioxide 21 mmol/L (20-31); Chloride 100 mmol/L (98-107); Glucose 119 mg/dL (74-106); Sodium 135 mmol/L (136-145)
[2024-07-14 06:49] LABS: Bilirubin, Total 1.8 mg/dL (0.2-1.0); Total Protein 6.1 g/dL (5.7-8.2)
--- NOTE | 2024-07-14 10:27 | DVH ---
INDICATION: cirrhosis TECHNIQUE: Multiple real-time sonographic images were obtained of the right upper quadrant. COMPARISON: LIVER on DOS: 06/28/22, RELB on DOS: 06/28/22 FINDINGS: The liver demonstrates HETEROGENEOUS echotexture without focal mass lesions. The liver arianne ures 16cm. There is no intrahepatic or extrahepatic ductal dilatation. The gallbladder is without evidence of stone or sludge. The gallbladder wall measures 0.8 mm and is thickened. The right kidney measures 10 cm. The right kidney is normal in contour, size, and shape. The echog enicity is normal. There is no hydronephrosis. The pancreas is not well visualized due to overlying bowel gas. IMPRESSION: Thickened gallbladder wall. Please correlate with Alk Phos, bilirubin, blood culture, fever, WBC for primary cholecystitis, versu s secondary wall thickening with lipase for pancreatitis, AST/ALT for hepatitis/cirrhosis, BUN/Cr for renal failure, and BNP/albumin for CHF/low protein state. Hepatic steatosis.
[2024-07-14] MEDS ORDERED: VANCOMYCIN PER PHARMACY 0 MG IV SCH (11:30)
[2024-07-14 12:29] LABS: Basophils # (auto) 0.1 10 ^3/uL (0-0.2); Basophils % (auto) 0.5 % (0.0-2.0); Eosinophils # (auto) 0.1 10 ^3/uL (0-0.8); Eosinophils % (auto) 0.3 % (0.0-7.0); Hematocrit 34.9 % (41.0-53.0); Hemoglobin 11.3 g/dL (13.5-17.5); Lymphocytes # (auto) 1.3 10 ^3/uL (0.4-5.4); Lymphocytes % (auto) 8.8 % (10.0-50.0); Mean Corpuscular Hemoglobin 25.6 pg (28.0-32.0); Mean Corpuscular Hgb Conc. 32.4 g/dL (32.0-36.0); Mean Corpuscular Volume 79.1 fL (80.0-100.0); Monocytes # (auto) 1.9 10 ^3/uL (0-1.3); Monocytes % (auto) 12.9 % (0.0-12.0); Neutrophils # (auto) 11.5 10 ^3/uL (1.6-8.6); Neutrophils % (auto) 77.5 % (37.0-80.0); Nucleated Red Blood Cells % 0.1 %; Platelet Count (auto) 179 10^3/uL (140-450); Red Blood Cells 4.41 10^6/uL (4.5-5.90); Red Cell Distribution Width 15.9 % (11.8-14.3); White Blood Cell 14.9 10^3/uL (4.4-10.8)
[2024-07-14] MEDS: POTASSIUM CHLORIDE 40 MEQ, LIDOCAINE 1% (LOCAL ANESTH.) 4 ML in SODIUM CHL 0.9% 250 ML IV ONE (12:56)
[2024-07-14] MEDS: CEFEPIME 2GM/50ML NS 50 ML IV ONE (13:00)
[2024-07-14] MEDS: VANCOMYCIN 1GM/250ML KIT 200 ML IV ONE (14:08)
[2024-07-14 15:06] LABS: Erythrocyte Sedimentation Rate 60 mm/hr (0-20)
[2024-07-14] MEDS: CEFEPIME 2GM/50ML NS 50 ML IV SCH (21:17)
[2024-07-15] VITALS (8 sets, daily range): BP systolic 115–152; BP diastolic 63–79; PULSE 76–88; RESP 17–21; TEMP 98.2–99.1; O2SAT 89–98
[2024-07-15] MEDS: VANCOMYCIN 1GM/250ML KIT 250 ML IV SCH (02:00)
[2024-07-15 10:27] LABS: Basophils # (auto) 0.1 10 ^3/uL (0-0.2); Basophils % (auto) 0.5 % (0.0-2.0); Eosinophils # (auto) 0.1 10 ^3/uL (0-0.8); Eosinophils % (auto) 1.3 % (0.0-7.0); Hematocrit 32.1 % (41.0-53.0); Hemoglobin 10.5 g/dL (13.5-17.5); Mean Corpuscular Hemoglobin 25.2 pg (28.0-32.0); Mean Corpuscular Hgb Conc. 32.6 g/dL (32.0-36.0); Mean Corpuscular Volume 77.4 fL (80.0-100.0); Monocytes # (auto) 1.4 10 ^3/uL (0-1.3); Monocytes % (auto) 12.7 % (0.0-12.0); Neutrophils # (auto) 8.6 10 ^3/uL (1.6-8.6); Neutrophils % (auto) 76.5 % (37.0-80.0); Nucleated Red Blood Cells % 0.2 %; Platelet Count (auto) 227 10^3/uL (140-450); Red Blood Cells 4.15 10^6/uL (4.5-5.90); Red Cell Distribution Width 15.3 % (11.8-14.3); White Blood Cell 11.2 10^3/uL (4.4-10.8)
[2024-07-15 11:19] LABS: Alanine Aminotransferase 57 U/L (7-40); Albumin 3.2 g/dL (3.2-4.8); Alkaline Phosphatase 47 U/L (46-116); Anion Gap 8 (5-15); Aspartate Aminotransferase 73 U/L (13-40); Blood Urea Nitrogen 9 mg/dL (9-23); Calcium 8.6 mg/dL (8.7-10.4); Carbon Dioxide 25 mmol/L (20-31); Chloride 101 mmol/L (98-107); Glucose 110 mg/dL (74-106); Potassium 2.9 mmol/L (3.5-5.1); Sodium 134 mmol/L (136-145)
[2024-07-15 11:21] LABS: Bilirubin, Total 1.1 mg/dL (0.2-1.0); Total Protein 5.9 g/dL (5.7-8.2)
[2024-07-15] MEDS: THIAMINE HCL 100 MG TAB PO ONE (14:16)
[2024-07-15] MEDS: MAGNESIUM OXIDE 400 MG TAB PO ONE (14:16)
--- NOTE | 2024-07-15 14:24 | DVHPN2 ---
Subjective Patient slow to respond. Encephalopathic. Reviewed: Care Plan, H&P, Labs Changes from previous H/P or p: No Changes Eyes: No Pain, No Vision change, No Conjunctivae inflammation, No Eyelid inflammation, No Other, No Redness ENT: No Ear pain, No Ear discharge, No Nose pain, No Nose discharge, No Nose congestion, No Mouth pain, No Mouth swelling, No Throat pain, No Throat swelling, No Other Cardiovascular: No Chest Pain; Palpitations; No Orthopnea, No Paroxysmal Noc. Dyspnea, No Edema, No Lt Headedness, No Other Respiratory: No Cough, No Dry, No Shortness of breath, No SOB with excertion, No Wheezing, No Hemoptysis, No Pleuritic Pain, No Sputum, No Other Gastrointestinal: No Nausea, No Vomiting, No Abdominal Pain, No Diarrhea, No Constipation, No Melena, No Hematochezia, No Other Genitourinary: No Dysuria, No Frequency, No Incontinence, No Hematuria, No Retention, No Other Musculoskeletal: No other, No neck pain, No shoulder pain, No arm pain, No back pain, No hand pain, No leg pain, No foot pain Skin: No Rash, No Lesions, No Jaundice, No Bruising, No Other Objective Vitals Vital Signs Date Time Temp Pulse Resp B/P (MAP) Pulse Ox O2 Delivery O2 Flow Rate FiO2 07/15/24 09:31 87 129/64 07/15/24 08:05 21 93 Room Air* 0 21 07/15/24 05:00 98.2 98.2 Intake/Output Intake and Output 07/15/24 07:00 Intake Total 1524 ml Output Total 751 ml Balance 773 ml Intake Oral 500 ml IV Total 1024 ml Output Urine Total 750 ml Stool Total 1 ml # Bowel Movements 1 General Appearance: Alert, No acute distress, Other (Encephalopathic) HEENT: Atraumatic, PERRLA Chest/Breasts: Other (Ecchymosis to chest) Cardiovascular: Normal S1, Normal S2, Other (Sinus tachycardia) Musculoskeletal: Normal sensory function, Normal motor function Neuro: Normal speech Psych/Mental Status: Mental status NL (Altered mental status), Mood NL (Withdrawn/sleepy) Medications Current Medications Medications Dose Ordered Sig/Edmar Route Start Time Stop Time Status Last Admin Dose Admin Ondansetron HCl 4 mg Q4HPRN PRN IV 07/12/24 23:45 Folic Acid 1 mg DAILY PO 07/13/24 10:00 07/15/24 09:30 1 MG Multivitamins 1 tab DAILY PO 07/13/24 10:00 07/15/24 09:30 1 TAB Al Hydrox/Mg Hydrox/Simethicone 30 ml Q6HP PRN PO 07/12/24 23:45 Docusate Sodium 100 mg BIDPRN PRN PO 07/12/24 23:45 Acetaminophen 650 mg Q6HP PRN PO 07/12/24 23:45 Acetaminophen/ Hydrocodone Bitart 1 tab Q4HP PRN PO 07/12/24 23:45 Morphine Sulfate 2 mg Q4HPRN PRN IV 07/12/24 23:45 Metoprolol Tartrate 25 mg BID PO 07/13/24 22:00 07/15/24 09:31 25 MG Vancomycin HCl 0 ml @ 0 mls/hr UD IV 07/14/24 11:30 Cefepime HCl 50 ml @ 12.5 mls/hr Q12HR IV 07/14/24 22:00 07/15/24 09:31 12.5 MLS/HR Vancomycin HCl 250 ml @ 125 mls/hr Q12H IV 07/15/24 02:00 Thiamine HCl 100 mg DAILY PO 07/16/24 10:00 Magnesium Oxide 400 mg DAILY PO 07/16/24 10:00 Potassium Bicarbonate 50 meq DAILY PO 07/16/24 10:00 Laboratory Results Laboratory Tests 07/15/24 10:02 Chemistry Test 07/15/24 10:02 Albumin 3.2 g/dL (3.2-4.8) Calcium Level 8.6 mg/dL (8.7-10.4) L Total Protein 5.9 g/dL (5.7-8.2) LFT Test 07/15/24 10:02 Alanine Aminotransferase (ALT) 57 U/L (7-40) H Alkaline Phosphatase 47 U/L (46-116) Aspartate Amino Transferase (AST) 73 U/L (13-40) H Total Bilirubin 1.1 mg/dL (0.2-1.0) H Urinalysis Test 07/12/24 22:47 Urine Color Yellow (Yellow) Urine Clarity Clear (Clear) Urine pH 6.0 (5.0-9.0) Urine Specific [place] 1.023 (1.001-1.035) Urine Protein 1+ (Negative) H Urine Ketones 1+ (Negative) H Urine Blood Trace /uL (Negative) H Urine Nitrite Negative (Negative) Urine Bilirubin 1+ (Negative) Urine Urobilinogen 12 mg/dL (Negative) H Urine Leukocyte Esterase Negative /uL (Negative) Urine RBC 1 /hpf (0 - 3) Urine WBC 1 /hpf (0 - 3) Urine Squamous Epithelial Cells Few /hpf (<5) Urine Bacteria None seen /hpf (None Seen) Urine Glucose Normal mg/dL (Normal) Microbiology Microbiology Date/Time Source Procedure Growth Status 07/14/24 13:50 Blood Blood Culture - Preliminary NO GROWTH AFTER 24 HOURS OF INCUBATION. Resulted Assessment/Plan Assessment/Plan Impression: -probable toxic metabolic encephalopathy secondary to EtOH versus Librium -accelerated hypertension -microcytic, hypochromic anemia -thrombocytopenia -reported EtOH history -hypokalemia -sepsis, unknown etiology Plan: -patient noted to be febrile. Started on empiric antibiotic therapy with vancomycin and cefepime. All hypnotics has been held. IV hydration with potassium replacement started. Patient was more alert today. Denies any symptoms. Patient tolerating oral intake. Bradley cultures currently pending -CT scan of the chest, abdomen, pelvis IV contrast to identify etiology of sepsis. -start metoprolol tartrate 25 mg p.o. b.i.d. -check vitamin-D, TSH -PUD prophylaxis -potassium replacement -physical therapy consultation -repeat labs in a.m. Total time spent with patient discussing and formulating plan of care: 35 minutes. This medical document was created using an electronic medical record system with [employer] dictation system. Although this document has been carefully reviewed, there may still be some phonetic and typographical errors. These areas are purely typographical due to imperfections of the software programs, and do not reflect any compromise in the patient's medical care. Plan discussed with: Patient, Other (RN) My Orders Orders - JOY SILVA THIRD HAND Procedure Category Date Status Time Vancomycin 1gm/250ml PHA 07/15/24 In Process Kit 02:00 Creatinine LAB 07/16/24 Verified 13:00 Vancomycin,Trough LAB 07/16/24 Verified 13:00 Urine Bacterial NANCI 07/15/24 In Process Culture 09:46 Thiamine Tab PHA 07/16/24 In Process 10:00 Magnesium Oxide PHA 07/16/24 In Process Tablet (Mag-Ox Tablet) 10:00 Potassium Effervesent PHA 07/16/24 In Process Tab (Klor-Con/Ef) 10:00 Pt Request For Service PT 07/15/24 Logged 14:09 Ct Chest/Ab/Pl W Con- CT 07/15/24 Logged Iv Only 14:09 Basic Metabolic Panel LAB 07/16/24 Verified 04:00 Date of Service: Jul 15, 2024 Billing Provider: JOY SILVA NP Common Visit Codes: [id number] INP/OBS CARE(HIGH) JOY SILVA NP Jul 15, 2024 14:24
[2024-07-15] MEDS: IOHEXOL 300 MG/ML 100ML BOTTLE IJ ONE (14:40)
--- NOTE | 2024-07-15 15:20 | DVH ---
CT CHEST, ABDOMEN AND PELVIS CLINICAL HISTORY: Sepsis etiology TECHNIQUE: Multiple contiguous axial images of the chest, abdomen and pelvis with intravenous contras t. The images were reformatted degenerate coronal and sagittal reconstructions. 100 cc of Omnipaque 300 contrast was injected intravenously. All CT scans at this medical facility are performed using dose modulation techniques as appropriate t o a performed exam including the following:Automated exposure control was utilized; adjustment of the MA and/or KV according to patient size; and use of iterative reconstruction technique. Radiation Dose Information: CT Dose: CTDI volume is 6.56 mGy. Dose-length product is 475.99 mGy*cm FINDINGS: There are patchy opacities in the bilateral lungs likely representing multi lobar airspace disease. T here are small bilateral pleural effusions with atelectasis in the posterior lung bases. There is no evidence of pneumothorax. There is no evidence of a suspicious appearing pulmonary nodule or mass. T he central airways are clear. There is no evidence of a mediastinal mass or lymphadenopathy. There is no hilar or axillary lymphad enopathy. The heart size within normal limits. There is no pericardial effusion. There is diffuse fatty infiltration of the liver. The gallbladder, pancreas, kidneys, adrenal glan ds, and spleen appear within normal limits. There is no evidence of abdominal lymphadenopathy. There is no free fluid or free air. The stomach grossly appears unremarkable.The small and large bowel loops demonstrate normal caliber a nd appear within normal limits.. There are calcified atherosclerotic changes in the abdominal aorta. The IVC appears within normal li mits. There is a Sanchez catheter in the bladder. There is moderate amount of air within bladder. There is no evidence of a pelvic mass or lymphadenopathy. There is no free fluid collection. There is no acute osseous abnormality. IMPRESSION: 1. Patchy opacities in the bilateral lungs likely representing multilobar airspace disease such as pn eumonia. 2. Small bilateral pleural effusions with atelectasis in the posterior lung bases. 3. Hepatic steatosis. 4. Sanchez catheter in the bladder. There is moderate amount of air within the bladder. HS:Y
[2024-07-15] MEDS: POTASSIUM EFFERVESENT TAB 25 MEQ PO ONE (16:52)
[2024-07-16 01:00] VITALS: BP 139/86; PULSE 79; RESP 18; TEMP 98.7; O2SAT 96
[2024-07-16 05:00] VITALS: BP 126/79; PULSE 84; RESP 17; TEMP 98.5; O2SAT 96
[2024-07-16 07:42] LABS: Chloride 100 mmol/L (98-107)
[2024-07-16 07:43] LABS: Anion Gap 9 (5-15); Carbon Dioxide 25 mmol/L (20-31)
[2024-07-16 07:47] LABS: Potassium 3.5 mmol/L (3.5-5.1); Sodium 134 mmol/L (136-145)
[2024-07-16 07:48] LABS: BUN/Creatinine Ratio 10.8 (10.0-20.0); Glucose 97 mg/dL (74-106)
[2024-07-16 07:49] LABS: Blood Urea Nitrogen 8 mg/dL (9-23)
[2024-07-16] MEDS: VANCOMYCIN 1GM/250ML KIT 250 ML IV SCH (08:00)
[2024-07-16] MEDS ORDERED: VANCOMYCIN 1GM/250ML KIT 250 ML IV SCH (08:00)
[2024-07-16 08:51] VITALS: BP 159/87; PULSE 84; RESP 16; TEMP 97.6; O2SAT 97
[2024-07-16] MEDS: THIAMINE HCL 100 MG TAB PO SCH (10:20)
[2024-07-16] MEDS: MAGNESIUM OXIDE 400 MG TAB PO SCH (10:20)
[2024-07-16] MEDS: POTASSIUM EFFERVESENT TAB 25 MEQ PO SCH (10:23)
[2024-07-16 10:56] LABS: Hepatitis B Surface Antigen Negative (Negative); Hepatitis C Antibody Negative (Negative)
[2024-07-16 13:00] VITALS: BP 131/77; PULSE 75; RESP 18; TEMP 98; O2SAT 100
--- NOTE | 2024-07-16 13:02 | DVHPN2 ---
Subjective Patient more awake and following commands Reviewed: Care Plan, H&P, Labs Changes from previous H/P or p: No Changes Eyes: No Pain, No Vision change, No Conjunctivae inflammation, No Eyelid inflammation, No Other, No Redness ENT: No Ear pain, No Ear discharge, No Nose pain, No Nose discharge, No Nose congestion, No Mouth pain, No Mouth swelling, No Throat pain, No Throat swelling, No Other Cardiovascular: No Chest Pain; Palpitations; No Orthopnea, No Paroxysmal Noc. Dyspnea, No Edema, No Lt Headedness, No Other Respiratory: No Cough, No Dry, No Shortness of breath, No SOB with excertion, No Wheezing, No Hemoptysis, No Pleuritic Pain, No Sputum, No Other Gastrointestinal: No Nausea, No Vomiting, No Abdominal Pain, No Diarrhea, No Constipation, No Melena, No Hematochezia, No Other Genitourinary: No Dysuria, No Frequency, No Incontinence, No Hematuria, No Retention, No Other Musculoskeletal: No other, No neck pain, No shoulder pain, No arm pain, No back pain, No hand pain, No leg pain, No foot pain Skin: No Rash, No Lesions, No Jaundice, No Bruising, No Other Objective Vitals Vital Signs Date Time Temp Pulse Resp B/P (MAP) Pulse Ox O2 Delivery O2 Flow Rate FiO2 07/16/24 10:20 84 159/87 07/16/24 08:51 97.6 16 97 97.6 07/15/24 20:00 Room Air* 0 21 Intake/Output Intake and Output 07/16/24 07:00 Intake Total 1130 ml Output Total 1100 ml Balance 30 ml Intake Oral 780 ml IV Total 350 ml Output Urine Total 1100 ml General Appearance: Alert, No acute distress, Other (Encephalopathic) HEENT: Atraumatic, PERRLA Chest/Breasts: Other (Ecchymosis to chest) Cardiovascular: Normal S1, Normal S2, Other (Sinus tachycardia) Musculoskeletal: Normal sensory function, Normal motor function Neuro: Normal speech Psych/Mental Status: Mental status NL (Altered mental status), Mood NL (Withdrawn/sleepy) Medications Current Medications Medications Dose Ordered Sig/Edmar Route Start Time Stop Time Status Last Admin Dose Admin Ondansetron HCl 4 mg Q4HPRN PRN IV 07/12/24 23:45 Folic Acid 1 mg DAILY PO 07/13/24 10:00 07/16/24 10:23 1 MG Multivitamins 1 tab DAILY PO 07/13/24 10:00 07/16/24 10:24 1 TAB Al Hydrox/Mg Hydrox/Simethicone 30 ml Q6HP PRN PO 07/12/24 23:45 Docusate Sodium 100 mg BIDPRN PRN PO 07/12/24 23:45 Acetaminophen 650 mg Q6HP PRN PO 07/12/24 23:45 Acetaminophen/ Hydrocodone Bitart 1 tab Q4HP PRN PO 07/12/24 23:45 Morphine Sulfate 2 mg Q4HPRN PRN IV 07/12/24 23:45 Metoprolol Tartrate 25 mg BID PO 07/13/24 22:00 07/16/24 10:20 25 MG Vancomycin HCl 0 ml @ 0 mls/hr UD IV 07/14/24 11:30 Cefepime HCl 50 ml @ 12.5 mls/hr Q12HR IV 07/14/24 22:00 07/16/24 10:23 12.5 MLS/HR Thiamine HCl 100 mg DAILY PO 07/16/24 10:00 07/16/24 10:23 100 MG Magnesium Oxide 400 mg DAILY PO 07/16/24 10:00 07/16/24 10:24 400 MG Potassium Bicarbonate 50 meq DAILY PO 07/16/24 10:00 07/16/24 10:23 50 MEQ Vancomycin HCl 250 ml @ 166.667 mls/hr Q18H IV 07/16/24 08:00 07/16/24 08:00 166.667 MLS/HR Laboratory Results Laboratory Tests 07/15/24 10:02 07/16/24 06:10 Chemistry Test 07/16/24 06:10 Calcium Level 9.0 mg/dL (8.7-10.4) Urinalysis Test 07/12/24 22:47 Urine Color Yellow (Yellow) Urine Clarity Clear (Clear) Urine pH 6.0 (5.0-9.0) Urine Specific [place] 1.023 (1.001-1.035) Urine Protein 1+ (Negative) H Urine Ketones 1+ (Negative) H Urine Blood Trace /uL (Negative) H Urine Nitrite Negative (Negative) Urine Bilirubin 1+ (Negative) Urine Urobilinogen 12 mg/dL (Negative) H Urine Leukocyte Esterase Negative /uL (Negative) Urine RBC 1 /hpf (0 - 3) Urine WBC 1 /hpf (0 - 3) Urine Squamous Epithelial Cells Few /hpf (<5) Urine Bacteria None seen /hpf (None Seen) Urine Glucose Normal mg/dL (Normal) Microbiology Microbiology Date/Time Source Procedure Growth Status 07/15/24 10:00 Voided Urine Urine Culture - Preliminary Resulted 07/14/24 13:50 Blood Blood Culture - Preliminary NO GROWTH AFTER 24 HOURS OF INCUBATION. Resulted Labs and/or images reviewed: Labs reviewed by me, Image(s) reviewed by me Assessment/Plan Assessment/Plan Impression: -probable toxic metabolic encephalopathy secondary to EtOH versus Librium -accelerated hypertension -microcytic, hypochromic anemia -thrombocytopenia -reported EtOH history -hypokalemia -sepsis, unknown etiology Plan: -patient more alert and oriented. WBC improving. -CT scan of the chest, abdomen, pelvis IV contrast to identify etiology of sepsis. -start metoprolol tartrate 25 mg p.o. b.i.d. -check vitamin-D, TSH : Reviewed -PUD prophylaxis -potassium replacement -physical therapy consultation: Please get patient out of bed. -repeat labs in a.m. Total time spent with patient discussing and formulating plan of care: 35 minutes. This medical document was created using an electronic medical record system with [employer] dictation system. Although this document has been carefully reviewed, there may still be some phonetic and typographical errors. These areas are purely typographical due to imperfections of the software programs, and do not reflect any compromise in the patient's medical care. Plan discussed with: Patient, Other (RN) My Orders Orders - JYO SILVA [employer] Procedure Category Date Status Time Potassium Effervesent PHA 07/16/24 In Process Tab (Klor-Con/Ef) 10:00 Pt Request For Service PT 07/15/24 Logged 14:09 Ct Chest/Ab/Pl W Con- CT 07/15/24 Resulted Iv Only 14:09 Vancomycin,Trough LAB 07/17/24 Verified 01:00 Vancomycin Per [facility] [place] 07/17/24 In Process Pharmacy Protoc 02:00 Creatinine LAB 07/17/24 Verified 05:00 Vancomycin 1gm/250ml PHA 07/16/24 In Process Kit 08:00 Complete Blood Count LAB 07/17/24 Verified 04:00 Oob To Chair [facility] [place] 07/16/24 In Process 12:58 Date of Service: Jul 16, 2024 Billing Provider: JOY SILVA NP Common Visit Codes: [id number] INP/OBS CARE(HIGH) JOY SILVA NP Jul 16, 2024 13:02
--- NOTE | 2024-07-16 13:15 | DVHPN2 ---
Subjective Patient more awake and following commands Reviewed: Care Plan, H&P, Labs Changes from previous H/P or p: No Changes Eyes: No Pain, No Vision change, No Conjunctivae inflammation, No Eyelid inflammation, No Other, No Redness ENT: No Ear pain, No Ear discharge, No Nose pain, No Nose discharge, No Nose congestion, No Mouth pain, No Mouth swelling, No Throat pain, No Throat swelling, No Other Cardiovascular: No Chest Pain; Palpitations; No Orthopnea, No Paroxysmal Noc. Dyspnea, No Edema, No Lt Headedness, No Other Respiratory: No Cough, No Dry, No Shortness of breath, No SOB with excertion, No Wheezing, No Hemoptysis, No Pleuritic Pain, No Sputum, No Other Gastrointestinal: No Nausea, No Vomiting, No Abdominal Pain, No Diarrhea, No Constipation, No Melena, No Hematochezia, No Other Genitourinary: No Dysuria, No Frequency, No Incontinence, No Hematuria, No Retention, No Other Musculoskeletal: No other, No neck pain, No shoulder pain, No arm pain, No back pain, No hand pain, No leg pain, No foot pain Skin: No Rash, No Lesions, No Jaundice, No Bruising, No Other Objective Vitals Vital Signs Date Time Temp Pulse Resp B/P (MAP) Pulse Ox O2 Delivery O2 Flow Rate FiO2 07/16/24 10:20 84 159/87 07/16/24 08:51 97.6 16 97 97.6 07/15/24 20:00 Room Air* 0 21 Intake/Output Intake and Output 07/16/24 07:00 Intake Total 1130 ml Output Total 1100 ml Balance 30 ml Intake Oral 780 ml IV Total 350 ml Output Urine Total 1100 ml General Appearance: Alert, No acute distress, Other (Encephalopathic) HEENT: Atraumatic, PERRLA Chest/Breasts: Other (Ecchymosis to chest) Cardiovascular: Normal S1, Normal S2, Other (Sinus tachycardia) Musculoskeletal: Normal sensory function, Normal motor function Neuro: Normal speech Psych/Mental Status: Mental status NL (Altered mental status), Mood NL (Withdrawn/sleepy) Medications Current Medications Medications Dose Ordered Sig/Edmar Route Start Time Stop Time Status Last Admin Dose Admin Ondansetron HCl 4 mg Q4HPRN PRN IV 07/12/24 23:45 Folic Acid 1 mg DAILY PO 07/13/24 10:00 07/16/24 10:23 1 MG Multivitamins 1 tab DAILY PO 07/13/24 10:00 07/16/24 10:24 1 TAB Al Hydrox/Mg Hydrox/Simethicone 30 ml Q6HP PRN PO 07/12/24 23:45 Docusate Sodium 100 mg BIDPRN PRN PO 07/12/24 23:45 Acetaminophen 650 mg Q6HP PRN PO 07/12/24 23:45 Acetaminophen/ Hydrocodone Bitart 1 tab Q4HP PRN PO 07/12/24 23:45 Morphine Sulfate 2 mg Q4HPRN PRN IV 07/12/24 23:45 Metoprolol Tartrate 25 mg BID PO 07/13/24 22:00 07/16/24 10:20 25 MG Vancomycin HCl 0 ml @ 0 mls/hr UD IV 07/14/24 11:30 Cefepime HCl 50 ml @ 12.5 mls/hr Q12HR IV 07/14/24 22:00 07/16/24 10:23 12.5 MLS/HR Thiamine HCl 100 mg DAILY PO 07/16/24 10:00 07/16/24 10:23 100 MG Magnesium Oxide 400 mg DAILY PO 07/16/24 10:00 07/16/24 10:24 400 MG Potassium Bicarbonate 50 meq DAILY PO 07/16/24 10:00 07/16/24 10:23 50 MEQ Vancomycin HCl 250 ml @ 166.667 mls/hr Q18H IV 07/16/24 08:00 07/16/24 08:00 166.667 MLS/HR Laboratory Results Laboratory Tests 07/15/24 10:02 07/16/24 06:10 Chemistry Test 07/16/24 06:10 Calcium Level 9.0 mg/dL (8.7-10.4) Urinalysis Test 07/12/24 22:47 Urine Color Yellow (Yellow) Urine Clarity Clear (Clear) Urine pH 6.0 (5.0-9.0) Urine Specific [place] 1.023 (1.001-1.035) Urine Protein 1+ (Negative) H Urine Ketones 1+ (Negative) H Urine Blood Trace /uL (Negative) H Urine Nitrite Negative (Negative) Urine Bilirubin 1+ (Negative) Urine Urobilinogen 12 mg/dL (Negative) H Urine Leukocyte Esterase Negative /uL (Negative) Urine RBC 1 /hpf (0 - 3) Urine WBC 1 /hpf (0 - 3) Urine Squamous Epithelial Cells Few /hpf (<5) Urine Bacteria None seen /hpf (None Seen) Urine Glucose Normal mg/dL (Normal) Microbiology Microbiology Date/Time Source Procedure Growth Status 07/15/24 10:00 Voided Urine Urine Culture - Preliminary Resulted 07/14/24 13:50 Blood Blood Culture - Preliminary NO GROWTH AFTER 24 HOURS OF INCUBATION. Resulted Labs and/or images reviewed: Labs reviewed by me, Image(s) reviewed by me Assessment/Plan Assessment/Plan Impression: -probable toxic metabolic encephalopathy secondary to EtOH versus Librium -accelerated hypertension -microcytic, hypochromic anemia -thrombocytopenia -reported EtOH history -hypokalemia -sepsis, unknown etiology Plan: -patient more alert and oriented. WBC improving. -CT scan of the chest, abdomen, pelvis IV contrast to identify etiology of sepsis. -start metoprolol tartrate 25 mg p.o. b.i.d. -check vitamin-D, TSH : Reviewed -PUD prophylaxis -potassium replacement -physical therapy consultation: Please get patient out of bed. -repeat labs in a.m. Total time spent with patient discussing and formulating plan of care: 35 minutes. This medical document was created using an electronic medical record system with [employer] dictation system. Although this document has been carefully reviewed, there may still be some phonetic and typographical errors. These areas are purely typographical due to imperfections of the software programs, and do not reflect any compromise in the patient's medical care. Plan discussed with: Patient My Orders Orders - JOY SILVA [employer] Procedure Category Date Status Time Potassium Effervesent PHA 07/16/24 In Process Tab (Klor-Con/Ef) 10:00 Pt Request For Service PT 07/15/24 Logged 14:09 Ct Chest/Ab/Pl W Con- CT 07/15/24 Resulted Iv Only 14:09 Vancomycin,Trough LAB 07/17/24 Verified 01:00 Vancomycin Per [facility] 07/17/24 In Process Pharmacy Protoc 02:00 Creatinine LAB 07/17/24 Verified 05:00 Vancomycin 1gm/250ml PHA 07/16/24 In Process Kit 08:00 Complete Blood Count LAB 07/17/24 Verified 04:00 Oob To Chair [facility] 07/16/24 In Process 12:58 Date of Service: Jul 14, 2024 Billing Provider: JOY SILVA NP Common Visit Codes: [id number] INP/OBS CARE(HIGH) JOY SILVA NP Jul 16, 2024 13:15
[2024-07-16 17:00] VITALS: BP 149/74; PULSE 76; RESP 18; TEMP 97.9; O2SAT 99
[2024-07-16 21:00] VITALS: BP 151/73; PULSE 84; RESP 19; TEMP 98.3; O2SAT 97
[2024-07-17 01:00] VITALS: BP 142/71; PULSE 80; RESP 18; TEMP 98.1; O2SAT 99
[2024-07-17 05:00] VITALS: BP 149/70; PULSE 84; RESP 18; TEMP 98.1; O2SAT 97
[2024-07-17 07:39] LABS: Basophils # (auto) 0.1 10 ^3/uL (0-0.2); Eosinophils # (auto) 0.1 10 ^3/uL (0-0.8); Eosinophils % (auto) 1.5 % (0.0-7.0); Hemoglobin 11.2 g/dL (13.5-17.5); Monocytes # (auto) 1.2 10 ^3/uL (0-1.3)
[2024-07-17 07:42] LABS: Basophils % (auto) 0.8 % (0.0-2.0); Hematocrit 34.4 % (41.0-53.0); Lymphocytes # (auto) 1.1 10 ^3/uL (0.4-5.4); Lymphocytes % (auto) 15.2 % (10.0-50.0); Mean Corpuscular Hemoglobin 25.5 pg (28.0-32.0); Mean Corpuscular Hgb Conc. 32.5 g/dL (32.0-36.0); Mean Corpuscular Volume 78.5 fL (80.0-100.0); Monocytes % (auto) 17.3 % (0.0-12.0); Neutrophils # (auto) 4.6 10 ^3/uL (1.6-8.6); Neutrophils % (auto) 65.2 % (37.0-80.0); Nucleated Red Blood Cells % 0.1 %; Platelet Count (auto) 306 10^3/uL (140-450); Red Blood Cells 4.38 10^6/uL (4.5-5.90); Red Cell Distribution Width 15.5 % (11.8-14.3); White Blood Cell 7.1 10^3/uL (4.4-10.8)
[2024-07-17 08:42] VITALS: BP 142/69; PULSE 82; RESP 16; TEMP 97.9; O2SAT 97
[2024-07-17 13:00] VITALS: BP 136/83; PULSE 72; RESP 17; TEMP 97.5; O2SAT 95
--- NOTE | 2024-07-17 13:43 | DVHPN2 ---
Subjective Patient more awake and following commands Reviewed: Care Plan, H&P, Labs Changes from previous H/P or p: No Changes Eyes: No Pain, No Vision change, No Conjunctivae inflammation, No Eyelid inflammation, No Other, No Redness ENT: No Ear pain, No Ear discharge, No Nose pain, No Nose discharge, No Nose congestion, No Mouth pain, No Mouth swelling, No Throat pain, No Throat swelling, No Other Cardiovascular: No Chest Pain; Palpitations; No Orthopnea, No Paroxysmal Noc. Dyspnea, No Edema, No Lt Headedness, No Other Respiratory: No Cough, No Dry, No Shortness of breath, No SOB with excertion, No Wheezing, No Hemoptysis, No Pleuritic Pain, No Sputum, No Other Gastrointestinal: No Nausea, No Vomiting, No Abdominal Pain, No Diarrhea, No Constipation, No Melena, No Hematochezia, No Other Genitourinary: No Dysuria, No Frequency, No Incontinence, No Hematuria, No Retention, No Other Musculoskeletal: No other, No neck pain, No shoulder pain, No arm pain, No back pain, No hand pain, No leg pain, No foot pain Skin: No Rash, No Lesions, No Jaundice, No Bruising, No Other Objective Vitals Vital Signs Date Time Temp Pulse Resp B/P (MAP) Pulse Ox O2 Delivery O2 Flow Rate FiO2 07/17/24 13:00 97.5 72 17 136/83 (100) 95 97.5 07/17/24 08:13 Room Air* 0 21 Intake/Output Intake and Output 07/17/24 07:00 Intake Total 1050 ml Output Total 1050 ml Balance 0 ml Intake Oral 750 ml IV Total 300 ml Output Urine Total 1050 ml General Appearance: Alert, Oriented X3, Cooperative, No acute distress, Other (Encephalopathic) HEENT: Atraumatic, PERRLA Chest/Breasts: Other (Ecchymosis to chest) Cardiovascular: Normal S1, Normal S2, Other (Sinus tachycardia) Musculoskeletal: Normal sensory function, Normal motor function Neuro: Normal speech Psych/Mental Status: Mental status NL (Altered mental status), Mood NL (Withdrawn/sleepy) Medications Current Medications Medications Dose Ordered Sig/Edmar Route Start Time Stop Time Status Last Admin Dose Admin Ondansetron HCl 4 mg Q4HPRN PRN IV 07/12/24 23:45 Folic Acid 1 mg DAILY PO 07/13/24 10:00 07/17/24 09:34 1 MG Multivitamins 1 tab DAILY PO 07/13/24 10:00 07/17/24 09:34 1 TAB Al Hydrox/Mg Hydrox/Simethicone 30 ml Q6HP PRN PO 07/12/24 23:45 Docusate Sodium 100 mg BIDPRN PRN PO 07/12/24 23:45 Acetaminophen 650 mg Q6HP PRN PO 07/12/24 23:45 Acetaminophen/ Hydrocodone Bitart 1 tab Q4HP PRN PO 07/12/24 23:45 Morphine Sulfate 2 mg Q4HPRN PRN IV 07/12/24 23:45 Metoprolol Tartrate 25 mg BID PO 07/13/24 22:00 07/17/24 09:34 25 MG Vancomycin HCl 0 ml @ 0 mls/hr UD IV 07/14/24 11:30 Cefepime HCl 50 ml @ 12.5 mls/hr Q12HR IV 07/14/24 22:00 07/17/24 09:33 12.5 MLS/HR Thiamine HCl 100 mg DAILY PO 07/16/24 10:00 07/17/24 09:34 100 MG Magnesium Oxide 400 mg DAILY PO 07/16/24 10:00 07/17/24 09:34 400 MG Potassium Bicarbonate 50 meq DAILY PO 07/16/24 10:00 07/17/24 09:33 50 MEQ Vancomycin HCl 250 ml @ 166.667 mls/hr Q15H IV 07/17/24 18:00 Laboratory Results Laboratory Tests 07/16/24 06:10 07/17/24 07:13 Urinalysis Test 07/12/24 22:47 Urine Color Yellow (Yellow) Urine Clarity Clear (Clear) Urine pH 6.0 (5.0-9.0) Urine Specific [place] 1.023 (1.001-1.035) Urine Protein 1+ (Negative) H Urine Ketones 1+ (Negative) H Urine Blood Trace /uL (Negative) H Urine Nitrite Negative (Negative) Urine Bilirubin 1+ (Negative) Urine Urobilinogen 12 mg/dL (Negative) H Urine Leukocyte Esterase Negative /uL (Negative) Urine RBC 1 /hpf (0 - 3) Urine WBC 1 /hpf (0 - 3) Urine Squamous Epithelial Cells Few /hpf (<5) Urine Bacteria None seen /hpf (None Seen) Urine Glucose Normal mg/dL (Normal) Microbiology Microbiology Date/Time Source Procedure Growth Status 07/15/24 10:00 Voided Urine Urine Culture - Final Complete 07/14/24 13:50 Blood Blood Culture - Preliminary NO GROWTH AFTER 48 HOURS OF INCUBATION. Resulted Labs and/or images reviewed: Labs reviewed by me, Image(s) reviewed by me Assessment/Plan Assessment/Plan Impression: -probable toxic metabolic encephalopathy secondary to EtOH versus Librium -accelerated hypertension -microcytic, hypochromic anemia -thrombocytopenia -reported EtOH history -hypokalemia -sepsis, unknown etiology Plan: -events: No events overnight. Patient now more awake and alert. Still has not ambulated. Has not gotten out of bed. Mental p.o. intake. WBC improving. Afebrile -CT scan of the chest, abdomen, pelvis IV contrast to identify etiology of sepsis. -continue metoprolol tartrate -check vitamin-D, TSH : Reviewed -PUD prophylaxis -physical therapy consultation: Please get patient out of bed. -repeat labs in a.m. -transferred to Medical/Surgical unit Total time spent with patient discussing and formulating plan of care: 35 minutes. This medical document was created using an electronic medical record system with [employer] dictation system. Although this document has been carefully reviewed, there may still be some phonetic and typographical errors. These areas are purely typographical due to imperfections of the software programs, and do not reflect any compromise in the patient's medical care. Plan discussed with: Patient, Other (RN) My Orders Orders - JOY SILVA NP Procedure Category Date Status Time Vancomycin 1gm/250ml PHA 07/17/24 In Process Kit 18:00 Vancomycin,Trough LAB 07/18/24 Verified 23:00 Vancomycin Per [facility] 07/19/24 In Process Pharmacy Protoc 00:00 Creatinine LAB 07/18/24 Verified 05:00 Date of Service: Jul 17, 2024 Billing Provider: JOY SILVA NP Common Visit Codes: [id number] INP/OBS CARE(HIGH) JOY SILVA NP Jul 17, 2024 13:43
[2024-07-17 16:55] VITALS: BP 132/71; PULSE 79; RESP 16; TEMP 98.1; O2SAT 93
[2024-07-17] MEDS: VANCOMYCIN 1GM/250ML KIT 250 ML IV SCH (18:00)
[2024-07-17] MEDS: Ensure Enlive Chocolate 8oz Bottle PO SCH (18:00)
[2024-07-17 21:00] VITALS: BP 133/78; PULSE 79; RESP 17; TEMP 98.1; O2SAT 95
[2024-07-18 01:00] VITALS: BP 136/74; PULSE 83; RESP 18; TEMP 97.9; O2SAT 95
[2024-07-18 05:00] VITALS: BP 131/77; PULSE 80; RESP 17; TEMP 97.9; O2SAT 97
[2024-07-18 08:19] LABS: Hemoglobin 11.2 g/dL (13.5-17.5)
[2024-07-18 08:22] LABS: Hematocrit 33.3 % (41.0-53.0); Mean Corpuscular Hemoglobin 25.9 pg (28.0-32.0); Mean Corpuscular Hgb Conc. 33.5 g/dL (32.0-36.0); Mean Corpuscular Volume 77.4 fL (80.0-100.0); Platelet Count (auto) 332 10^3/uL (140-450); Red Blood Cells 4.31 10^6/uL (4.5-5.90); Red Cell Distribution Width 15.5 % (11.8-14.3); White Blood Cell 5.6 10^3/uL (4.4-10.8)
[2024-07-18 08:25] LABS: Calcium 9.2 mg/dL (8.7-10.4); Chloride 100 mmol/L (98-107); Potassium 3.6 mmol/L (3.5-5.1)
[2024-07-18 08:26] LABS: Anion Gap 10 (5-15); Carbon Dioxide 23 mmol/L (20-31)
[2024-07-18 08:31] LABS: BUN/Creatinine Ratio 9.9 (10.0-20.0); Glucose 98 mg/dL (74-106)
[2024-07-18 08:33] LABS: Blood Urea Nitrogen 7 mg/dL (9-23); Sodium 133 mmol/L (136-145)
[2024-07-18 08:41] LABS: Band Neutrophils % (manual) 0; Basophils % (manual) 0 (0.0-2.0); Blast Cells 0; Metamyelocytes % 0; Myelocytes % 0; Promyelocytes % 0; Reactive Lymphocytes 0
[2024-07-18 09:35] LABS: Eosinophils % (manual) 1 (0-7); Lymphocytes % (manual) 16 (10.0-50.0); Monocytes % (manual) 14 (0-12); Platelet Estimate Adequate
[2024-07-18 09:36] VITALS: BP 139/72; PULSE 87; RESP 17; TEMP 98.3; O2SAT 94
[2024-07-18 11:07] LABS: Vitamin D 25-Hydroxy 5.1 ng/mL (.); Vitamin D-2 25-Hydroxy <1.0 ng/mL (.); Vitamin D-3 25-Hydroxy 5.1 ng/mL (.)
--- NOTE | 2024-07-18 12:17 | DVHPN2 ---
Subjective The patient is seen and examined at bedside. Still a little bit confused but alert awake. Reviewed: Care Plan, H&P, Labs Changes from previous H/P or p: No Changes Eyes: No Pain, No Vision change, No Conjunctivae inflammation, No Eyelid inflammation, No Other, No Redness ENT: No Ear pain, No Ear discharge, No Nose pain, No Nose discharge, No Nose congestion, No Mouth pain, No Mouth swelling, No Throat pain, No Throat swelling, No Other Cardiovascular: No Chest Pain; Palpitations; No Orthopnea, No Paroxysmal Noc. Dyspnea, No Edema, No Lt Headedness, No Other Respiratory: No Cough, No Dry, No Shortness of breath, No SOB with excertion, No Wheezing, No Hemoptysis, No Pleuritic Pain, No Sputum, No Other Gastrointestinal: No Nausea, No Vomiting, No Abdominal Pain, No Diarrhea, No Constipation, No Melena, No Hematochezia, No Other Genitourinary: No Dysuria, No Frequency, No Incontinence, No Hematuria, No Retention, No Other Musculoskeletal: No other, No neck pain, No shoulder pain, No arm pain, No back pain, No hand pain, No leg pain, No foot pain Skin: No Rash, No Lesions, No Jaundice, No Bruising, No Other Objective Vitals Vital Signs Date Time Temp Pulse Resp B/P (MAP) Pulse Ox O2 Delivery O2 Flow Rate FiO2 07/18/24 09:36 98.3 87 17 139/72 (94) 94 98.3 07/17/24 20:00 Room Air* 0 21 Intake/Output Intake and Output 07/18/24 07:00 Intake Total 790 ml Output Total 1175 ml Balance -385 ml Intake Oral 440 ml IV Total 350 ml Output Urine Total 1175 ml # Bowel Movements 1 General Appearance: Alert, Cooperative, No acute distress, Other (Encephalopathic) HEENT: Atraumatic, PERRLA Chest/Breasts: Other (Ecchymosis to chest) Cardiovascular: Normal S1, Normal S2, Other (Sinus tachycardia) Musculoskeletal: Normal sensory function, Normal motor function Neuro: Normal speech Psych/Mental Status: Mental status NL (Altered mental status), Mood NL (Withdrawn/sleepy) Medications Current Medications Medications Dose Ordered Sig/Edmar Route Start Time Stop Time Status Last Admin Dose Admin Ondansetron HCl 4 mg Q4HPRN PRN IV 07/12/24 23:45 Folic Acid 1 mg DAILY PO 07/13/24 10:00 07/17/24 09:34 1 MG Multivitamins 1 tab DAILY PO 07/13/24 10:00 07/17/24 09:34 1 TAB Al Hydrox/Mg Hydrox/Simethicone 30 ml Q6HP PRN PO 07/12/24 23:45 Docusate Sodium 100 mg BIDPRN PRN PO 07/12/24 23:45 Acetaminophen 650 mg Q6HP PRN PO 07/12/24 23:45 Acetaminophen/ Hydrocodone Bitart 1 tab Q4HP PRN PO 07/12/24 23:45 Morphine Sulfate 2 mg Q4HPRN PRN IV 07/12/24 23:45 Metoprolol Tartrate 25 mg BID PO 07/13/24 22:00 07/17/24 23:05 25 MG Vancomycin HCl 0 ml @ 0 mls/hr UD IV 07/14/24 11:30 Cefepime HCl 50 ml @ 12.5 mls/hr Q12HR IV 07/14/24 22:00 07/17/24 23:00 12.5 MLS/HR Thiamine HCl 100 mg DAILY PO 07/16/24 10:00 07/17/24 09:34 100 MG Magnesium Oxide 400 mg DAILY PO 07/16/24 10:00 07/17/24 09:34 400 MG Vancomycin HCl 250 ml @ 166.667 mls/hr Q15H IV 07/17/24 18:00 07/18/24 08:34 166.667 MLS/HR Enteral Nutritional Formula 240 ml TIDWM PO 07/17/24 18:00 07/18/24 08:00 240 ML Laboratory Results Laboratory Tests 07/18/24 06:37 Chemistry Test 07/18/24 06:37 Calcium Level 9.2 mg/dL (8.7-10.4) Urinalysis Test 07/12/24 22:47 Urine Color Yellow (Yellow) Urine Clarity Clear (Clear) Urine pH 6.0 (5.0-9.0) Urine Specific [place] 1.023 (1.001-1.035) Urine Protein 1+ (Negative) H Urine Ketones 1+ (Negative) H Urine Blood Trace /uL (Negative) H Urine Nitrite Negative (Negative) Urine Bilirubin 1+ (Negative) Urine Urobilinogen 12 mg/dL (Negative) H Urine Leukocyte Esterase Negative /uL (Negative) Urine RBC 1 /hpf (0 - 3) Urine WBC 1 /hpf (0 - 3) Urine Squamous Epithelial Cells Few /hpf (<5) Urine Bacteria None seen /hpf (None Seen) Urine Glucose Normal mg/dL (Normal) Microbiology Microbiology Date/Time Source Procedure Growth Status 07/15/24 10:00 Voided Urine Urine Culture - Final Complete 07/14/24 13:50 Blood Blood Culture - Preliminary NO GROWTH AFTER 72 HOURS OF INCUBATION. Resulted Labs and/or images reviewed: Labs reviewed by me Assessment/Plan Assessment/Plan -Toxic and metabolic encephalopathy secondary to EtOH, Librium and sepsis. -accelerated hypertension -microcytic, hypochromic anemia -thrombocytopenia -reported EtOH history -hypokalemia -sepsis, probable secondary to Gram-positive bacteria pneumonia -multilobar pneumonia with possible Gram-positive bacteria pneumonia . Plan: Continuing current management. Physical therapy to get the patient out of bed and ambulate. The patient had refused to walk yesterday. Review CT scan abdomen chest and pelvis show: 1. Patchy opacities in the bilateral lungs likely representing multilobar airspace disease such as pneumonia. Small bilateral pleural effusions with atelectasis in the posterior lung bases. Hepatic steatosis. Sanchez catheter in the bladder. There is moderate amount of air within the bladder. Continuing with metoprolol. Continuing with IV antibiotic vancomycin and cefepime. This medical document was created using an electronic medical record system with [employer] direct computerized dictation system. Although this document has been carefully reviewed, there may still be some phonetic and typographical errors. These areas are purely typographical due to imperfections of the software programs, and do not reflect any compromise in the patient's medical care. Plan discussed with: Patient Date of Service: Jul 18, 2024 Billing Provider: JACKSON CLARKE MD Common Visit Codes: [id number] INP/OBS CARE(HIGH) JACKSON CLARKE MD Jul 18, 2024 12:17
[2024-07-18 12:52] VITALS: BP 143/71; PULSE 82; RESP 18; TEMP 97.4; O2SAT 98
[2024-07-18 17:12] VITALS: BP 139/85; PULSE 74; RESP 18; TEMP 97.4; O2SAT 94
[2024-07-18 21:00] VITALS: BP 140/82; PULSE 72; RESP 18; TEMP 98.4; O2SAT 98
[2024-07-19] VITALS (7 sets, daily range): BP systolic 115–142; BP diastolic 64–82; PULSE 64–78; RESP 16–18; TEMP 98–98.7; O2SAT 93–100
[2024-07-19 07:58] LABS: Hemoglobin 10.8 g/dL (13.5-17.5); Red Cell Distribution Width 15.8 % (11.8-14.3); White Blood Cell 6.1 10^3/uL (4.4-10.8)
[2024-07-19 08:01] LABS: Mean Corpuscular Hemoglobin 25.9 pg (28.0-32.0); Mean Corpuscular Hgb Conc. 32.7 g/dL (32.0-36.0); Mean Corpuscular Volume 79.1 fL (80.0-100.0); Platelet Count (auto) 326 10^3/uL (140-450); Red Blood Cells 4.17 10^6/uL (4.5-5.90)
[2024-07-19 08:04] LABS: Band Neutrophils % (manual) 0; Basophils % (manual) 0 (0.0-2.0); Blast Cells 0; Metamyelocytes % 0; Myelocytes % 0; Promyelocytes % 0; Reactive Lymphocytes 0
[2024-07-19 08:28] LABS: Eosinophils % (manual) 4 (0-7); Lymphocytes % (manual) 6 (10.0-50.0); Monocytes % (manual) 26 (0-12)
[2024-07-19 08:29] LABS: Anisocytosis Slight; Platelet Estimate Adequate
[2024-07-19] MEDS: DOCUSATE SOD 100 MG CAP PO PRN (10:45)
--- NOTE | 2024-07-19 13:09 | DVHPN2 ---
Subjective The patient is seen and examined at bedside. Remained weak and shortness for breath. Reviewed: Care Plan, H&P, Labs Changes from previous H/P or p: No Changes Eyes: No Pain, No Vision change, No Conjunctivae inflammation, No Eyelid inflammation, No Other, No Redness ENT: No Ear pain, No Ear discharge, No Nose pain, No Nose discharge, No Nose congestion, No Mouth pain, No Mouth swelling, No Throat pain, No Throat swelling, No Other Cardiovascular: No Chest Pain; Palpitations; No Orthopnea, No Paroxysmal Noc. Dyspnea, No Edema, No Lt Headedness, No Other Respiratory: No Cough, No Dry, No Shortness of breath, No SOB with excertion, No Wheezing, No Hemoptysis, No Pleuritic Pain, No Sputum, No Other Gastrointestinal: No Nausea, No Vomiting, No Abdominal Pain, No Diarrhea, No Constipation, No Melena, No Hematochezia, No Other Genitourinary: No Dysuria, No Frequency, No Incontinence, No Hematuria, No Retention, No Other Musculoskeletal: No other, No neck pain, No shoulder pain, No arm pain, No back pain, No hand pain, No leg pain, No foot pain Skin: No Rash, No Lesions, No Jaundice, No Bruising, No Other Objective Vitals Vital Signs Date Time Temp Pulse Resp B/P (MAP) Pulse Ox O2 Delivery O2 Flow Rate FiO2 07/19/24 12:11 98.7 64 16 115/64 (81) 97 98.7 07/19/24 08:00 Room Air* 0 21 Intake/Output Intake and Output 07/19/24 07:00 Intake Total 1200 ml Output Total 1050 ml Balance 150 ml Intake Oral 500 ml IV Total 300 ml Tube Feeding 400 ml Output Urine Total 1050 ml General Appearance: Alert, Cooperative, No acute distress, Other (Encephalopathic) HEENT: Atraumatic, PERRLA Chest/Breasts: Other (Ecchymosis to chest) Cardiovascular: Normal S1, Normal S2, Other (Sinus tachycardia) Musculoskeletal: Normal sensory function, Normal motor function Neuro: Normal speech Psych/Mental Status: Mental status NL (Altered mental status), Mood NL (Withdrawn/sleepy) Medications Current Medications Medications Dose Ordered Sig/Edmar Route Start Time Stop Time Status Last Admin Dose Admin Ondansetron HCl 4 mg Q4HPRN PRN IV 07/12/24 23:45 Folic Acid 1 mg DAILY PO 07/13/24 10:00 07/19/24 10:43 1 MG Multivitamins 1 tab DAILY PO 07/13/24 10:00 07/19/24 10:45 1 TAB Al Hydrox/Mg Hydrox/Simethicone 30 ml Q6HP PRN PO 07/12/24 23:45 Docusate Sodium 100 mg BIDPRN PRN PO 07/12/24 23:45 07/19/24 10:45 100 MG Acetaminophen 650 mg Q6HP PRN PO 07/12/24 23:45 Acetaminophen/ Hydrocodone Bitart 1 tab Q4HP PRN PO 07/12/24 23:45 Morphine Sulfate 2 mg Q4HPRN PRN IV 07/12/24 23:45 Metoprolol Tartrate 25 mg BID PO 07/13/24 22:00 07/19/24 10:46 25 MG Vancomycin HCl 0 ml @ 0 mls/hr UD IV 07/14/24 11:30 Cefepime HCl 50 ml @ 12.5 mls/hr Q12HR IV 07/14/24 22:00 07/19/24 10:42 12.5 MLS/HR Thiamine HCl 100 mg DAILY PO 07/16/24 10:00 07/19/24 10:45 100 MG Magnesium Oxide 400 mg DAILY PO 07/16/24 10:00 07/19/24 10:45 400 MG Vancomycin HCl 250 ml @ 166.667 mls/hr Q15H IV 07/17/24 18:00 07/18/24 23:56 166.667 MLS/HR Enteral Nutritional Formula 240 ml TIDWM PO 07/17/24 18:00 07/18/24 18:00 240 ML Laboratory Results Laboratory Tests 07/18/24 06:37 07/19/24 06:51 Urinalysis Test 07/12/24 22:47 Urine Color Yellow (Yellow) Urine Clarity Clear (Clear) Urine pH 6.0 (5.0-9.0) Urine Specific [place] 1.023 (1.001-1.035) Urine Protein 1+ (Negative) H Urine Ketones 1+ (Negative) H Urine Blood Trace /uL (Negative) H Urine Nitrite Negative (Negative) Urine Bilirubin 1+ (Negative) Urine Urobilinogen 12 mg/dL (Negative) H Urine Leukocyte Esterase Negative /uL (Negative) Urine RBC 1 /hpf (0 - 3) Urine WBC 1 /hpf (0 - 3) Urine Squamous Epithelial Cells Few /hpf (<5) Urine Bacteria None seen /hpf (None Seen) Urine Glucose Normal mg/dL (Normal) Microbiology Microbiology Date/Time Source Procedure Growth Status 07/15/24 10:00 Voided Urine Urine Culture - Final Complete 07/14/24 13:50 Blood Blood Culture - Preliminary NO GROWTH AFTER 72 HOURS OF INCUBATION. Resulted Assessment/Plan Assessment/Plan -Toxic and metabolic encephalopathy secondary to EtOH, Librium and sepsis. -accelerated hypertension -microcytic, hypochromic anemia -thrombocytopenia -reported EtOH history -hypokalemia -sepsis, probable secondary to Gram-positive bacteria pneumonia -multilobar pneumonia with possible Gram-positive bacteria pneumonia . Plan: Continuing current management. Physical therapy to get the patient out of bed and ambulate. Review CT scan abdomen chest and pelvis show: Patchy opacities in the bilateral lungs likely representing multilobar airspace disease such as pneumonia. Small bilateral pleural effusions with atelectasis in the posterior lung bases. Hepatic steatosis. Sanchez catheter in the bladder. There is moderate amount of air within the bladder. Continuing with metoprolol. Continuing with IV antibiotic vancomycin and cefepime. We will monitor platelets. Replace electrolytes as needed. This medical document was created using an electronic medical record system with [employer] computerized dictation system. Although this document has been carefully reviewed, there may still be some phonetic and typographical errors. These areas are purely typographical due to imperfections of the software programs, and do not reflect any compromise in the patient's medical care. Plan discussed with: Patient Date of Service: Jul 19, 2024 Billing Provider: JACKSON CLARKE MD Common Visit Codes: [id number] INP/OBS CARE(HIGH) JACKSON CLARKE MD Jul 19, 2024 13:09
[2024-07-20] VITALS (8 sets, daily range): BP systolic 112–142; BP diastolic 64–81; PULSE 67–90; RESP 16–20; TEMP 97.5–99.3; O2SAT 95–100
[2024-07-20 07:33] LABS: Basophils # (auto) 0.1 10 ^3/uL (0-0.2); Eosinophils # (auto) 0.1 10 ^3/uL (0-0.8); Hemoglobin 9.9 g/dL (13.5-17.5); Lymphocytes # (auto) 0.9 10 ^3/uL (0.4-5.4); Monocytes # (auto) 0.9 10 ^3/uL (0-1.3); Neutrophils # (auto) 3.3 10 ^3/uL (1.6-8.6); White Blood Cell 5.3 10^3/uL (4.4-10.8)
[2024-07-20 07:35] LABS: Basophils % (auto) 1.8 % (0.0-2.0); Eosinophils % (auto) 1.9 % (0.0-7.0); Hematocrit 30.3 % (41.0-53.0); Lymphocytes % (auto) 16.6 % (10.0-50.0); Mean Corpuscular Hemoglobin 25.5 pg (28.0-32.0); Mean Corpuscular Hgb Conc. 32.8 g/dL (32.0-36.0); Monocytes % (auto) 17.2 % (0.0-12.0); Neutrophils % (auto) 62.5 % (37.0-80.0); Nucleated Red Blood Cells % 0.1 %; Platelet Count (auto) 338 10^3/uL (140-450); Red Blood Cells 3.89 10^6/uL (4.5-5.90); Red Cell Distribution Width 15.5 % (11.8-14.3)
--- NOTE | 2024-07-20 14:14 | DVHPN2 ---
Subjective Patient more awake and following commands Reviewed: Care Plan, H&P, Labs Changes from previous H/P or p: No Changes Eyes: No Pain, No Vision change, No Conjunctivae inflammation, No Eyelid inflammation, No Other, No Redness ENT: No Ear pain, No Ear discharge, No Nose pain, No Nose discharge, No Nose congestion, No Mouth pain, No Mouth swelling, No Throat pain, No Throat swelling, No Other Cardiovascular: No Chest Pain; Palpitations; No Orthopnea, No Paroxysmal Noc. Dyspnea, No Edema, No Lt Headedness, No Other Respiratory: No Cough, No Dry, No Shortness of breath, No SOB with excertion, No Wheezing, No Hemoptysis, No Pleuritic Pain, No Sputum, No Other Gastrointestinal: No Nausea, No Vomiting, No Abdominal Pain, No Diarrhea, No Constipation, No Melena, No Hematochezia, No Other Genitourinary: No Dysuria, No Frequency, No Incontinence, No Hematuria, No Retention, No Other Musculoskeletal: No other, No neck pain, No shoulder pain, No arm pain, No back pain, No hand pain, No leg pain, No foot pain Skin: No Rash, No Lesions, No Jaundice, No Bruising, No Other Objective Vitals Vital Signs Date Time Temp Pulse Resp B/P (MAP) Pulse Ox O2 Delivery O2 Flow Rate FiO2 07/20/24 12:30 97.5 69 17 127/78 (94) 100 97.5 07/20/24 08:05 Room Air* 0 21 Intake/Output Intake and Output 07/20/24 07:00 Intake Total 800 ml Output Total 950 ml Balance -150 ml Intake Oral 550 ml IV Total 250 ml Output Urine Total 950 ml General Appearance: Alert, Oriented X3, Cooperative, No acute distress, Other (Encephalopathic) HEENT: Atraumatic, PERRLA Chest/Breasts: Other (Ecchymosis to chest) Cardiovascular: Normal S1, Normal S2, Other (Sinus tachycardia) Musculoskeletal: Normal sensory function, Normal motor function Neuro: Normal speech Psych/Mental Status: Mental status NL (Altered mental status), Mood NL (Withdrawn/sleepy) Medications Current Medications Medications Dose Ordered Sig/Edmar Route Start Time Stop Time Status Last Admin Dose Admin Ondansetron HCl 4 mg Q4HPRN PRN IV 07/12/24 23:45 Folic Acid 1 mg DAILY PO 07/13/24 10:00 07/20/24 10:36 1 MG Multivitamins 1 tab DAILY PO 07/13/24 10:00 07/20/24 10:36 1 TAB Al Hydrox/Mg Hydrox/Simethicone 30 ml Q6HP PRN PO 07/12/24 23:45 Docusate Sodium 100 mg BIDPRN PRN PO 07/12/24 23:45 07/20/24 10:36 100 MG Acetaminophen 650 mg Q6HP PRN PO 07/12/24 23:45 Acetaminophen/ Hydrocodone Bitart 1 tab Q4HP PRN PO 07/12/24 23:45 Morphine Sulfate 2 mg Q4HPRN PRN IV 07/12/24 23:45 Metoprolol Tartrate 25 mg BID PO 07/13/24 22:00 07/20/24 10:37 25 MG Vancomycin HCl 0 ml @ 0 mls/hr UD IV 07/14/24 11:30 Cefepime HCl 50 ml @ 12.5 mls/hr Q12HR IV 07/14/24 22:00 07/20/24 10:36 12.5 MLS/HR Thiamine HCl 100 mg DAILY PO 07/16/24 10:00 07/20/24 10:37 100 MG Magnesium Oxide 400 mg DAILY PO 07/16/24 10:00 07/20/24 10:36 400 MG Vancomycin HCl 250 ml @ 166.667 mls/hr Q15H IV 07/17/24 18:00 07/20/24 05:36 166.667 MLS/HR Enteral Nutritional Formula 240 ml TIDWM PO 07/17/24 18:00 07/18/24 18:00 240 ML Laboratory Results Laboratory Tests 07/18/24 06:37 07/20/24 06:49 Urinalysis Test 07/12/24 22:47 Urine Color Yellow (Yellow) Urine Clarity Clear (Clear) Urine pH 6.0 (5.0-9.0) Urine Specific [place] 1.023 (1.001-1.035) Urine Protein 1+ (Negative) H Urine Ketones 1+ (Negative) H Urine Blood Trace /uL (Negative) H Urine Nitrite Negative (Negative) Urine Bilirubin 1+ (Negative) Urine Urobilinogen 12 mg/dL (Negative) H Urine Leukocyte Esterase Negative /uL (Negative) Urine RBC 1 /hpf (0 - 3) Urine WBC 1 /hpf (0 - 3) Urine Squamous Epithelial Cells Few /hpf (<5) Urine Bacteria None seen /hpf (None Seen) Urine Glucose Normal mg/dL (Normal) Microbiology Microbiology Date/Time Source Procedure Growth Status 07/15/24 10:00 Voided Urine Urine Culture - Final Complete 07/14/24 13:50 Blood Blood Culture - Final NO GROWTH AFTER 5 DAYS OF INCUBATION. Complete Labs and/or images reviewed: Labs reviewed by me, Image(s) reviewed by me Assessment/Plan Assessment/Plan Impression: -probable toxic metabolic encephalopathy secondary to EtOH versus Librium -accelerated hypertension -microcytic, hypochromic anemia -thrombocytopenia -reported EtOH history -hypokalemia -sepsis, unknown etiology Plan: -events: No events overnight. Cultures are negative. Patient with deconditioning and minimal ambulation. Patient was alert and stating that he has been at a detention facility in the past. -CT scan of the chest, abdomen, pelvis IV contrast to identify etiology of sepsis. -continue metoprolol tartrate -check vitamin-D, TSH : Reviewed -PUD prophylaxis -physical therapy consultation: Please get patient out of bed. -social service consultation for sniff placement for physical therapy Total time spent with patient discussing and formulating plan of care: 35 minutes. This medical document was created using an electronic medical record system with [employer] dictation system. Although this document has been carefully reviewed, there may still be some phonetic and typographical errors. These areas are purely typographical due to imperfections of the software programs, and do not reflect any compromise in the patient's medical care. Plan discussed with: Patient, Other (RN) My Orders Orders - JOY SILVA NP Procedure Category Date Status Time * Pricing Lead CONS 07/20/24 Transmitted Consult Date of Service: Jul 20, 2024 Billing Provider: JOY SILVA NP Common Visit Codes: [id number] INP/OBS CARE(HIGH) JOY SILVA NP Jul 20, 2024 14:14
[2024-07-21 01:00] VITALS: BP 132/56; PULSE 61; RESP 18; TEMP 97.9; O2SAT 99
[2024-07-21 05:00] VITALS: BP 134/75; PULSE 70; RESP 18; TEMP 97.9; O2SAT 100
[2024-07-21 05:51] LABS: Basophils # (auto) 0.1 10 ^3/uL (0-0.2); Eosinophils # (auto) 0.1 10 ^3/uL (0-0.8); Hemoglobin 9.8 g/dL (13.5-17.5); Lymphocytes # (auto) 0.9 10 ^3/uL (0.4-5.4)
[2024-07-21 05:53] LABS: Basophils % (auto) 2.1 % (0.0-2.0); Eosinophils % (auto) 2.1 % (0.0-7.0); Hematocrit 29.3 % (41.0-53.0); Lymphocytes % (auto) 18.4 % (10.0-50.0); Mean Corpuscular Hgb Conc. 33.3 g/dL (32.0-36.0); Monocytes # (auto) 0.8 10 ^3/uL (0-1.3); Neutrophils % (auto) 61.4 % (37.0-80.0); Platelet Count (auto) 332 10^3/uL (140-450); Red Blood Cells 3.76 10^6/uL (4.5-5.90); Red Cell Distribution Width 15.6 % (11.8-14.3); White Blood Cell 4.8 10^3/uL (4.4-10.8)
[2024-07-21 08:00] VITALS: PULSE 71; RESP 17; O2SAT 100
[2024-07-21 09:00] VITALS: BP 142/67; PULSE 71; RESP 16; TEMP 97.5; O2SAT 98
[2024-07-21 13:00] VITALS: BP 122/71; PULSE 84; RESP 18; TEMP 98; O2SAT 99
--- NOTE | 2024-07-21 13:40 | DVHDS2 ---
Discharge Summary Date of Admission Jul 12, 2024 at 23:42 Date of Discharge: Jul 21, 2024 Admitting Diagnosis Alcohol abuse Labs/Diagnostic Data: Laboratory Results Test 07/21/24 04:29 07/20/24 20:11 07/19/24 06:51 07/18/24 06:37 White Blood Count 4.8 10^3/uL (4.4-10.8) Red Blood Count 3.76 10^6/uL (4.5-5.90) Hemoglobin 9.8 g/dL (13.5-17.5) Hematocrit 29.3 % (41.0-53.0) Mean Corpuscular Volume 78.0 fL (80.0-100.0) Mean Corpuscular Hemoglobin 26.0 pg (28.0-32.0) Mean Corpuscular Hemoglobin Concent 33.3 g/dL (32.0-36.0) Red Cell Distribution Width 15.6 % (11.8-14.3) Platelet Count 332 10^3/uL (140-450) Mean Platelet Volume 8.6 fL (6.9-10.8) Neutrophils (%) (Auto) 61.4 % (37.0-80.0) Lymphocytes (%) (Auto) 18.4 % (10.0-50.0) Monocytes (%) (Auto) 16.0 % (0.0-12.0) Eosinophils (%) (Auto) 2.1 % (0.0-7.0) Basophils (%) (Auto) 2.1 % (0.0-2.0) Neutrophils # (Auto) 3.0 10 ^3/uL (1.6-8.6) Lymphocytes # (Auto) 0.9 10 ^3/uL (0.4-5.4) Monocytes # (Auto) 0.8 10 ^3/uL (0-1.3) Eosinophils # (Auto) 0.1 10 ^3/uL (0-0.8) Basophils # (Auto) 0.1 10 ^3/uL (0-0.2) Nucleated Red Blood Cells 0.0 % Creatinine 0.78 mg/dL (0.700-1.30) Glomerular Filtration Rate Calc 94 mL/min (>90) Vancomycin Level Trough 17.7 ug/mL (5-10) Differential Total Cells Counted 100.0 (100) Neutrophils % (Manual) 64 (37.0-80.0) Band Neutrophils % (Manual) 0 Lymphocytes % (Manual) 6 (10.0-50.0) Monocytes % (Manual) 26 (0-12) Eosinophils % (Manual) 4 (0-7) Basophils % (Manual) 0 (0.0-2.0) Metamyelocytes % (manual) 0 Myelocytes % (Manual) 0 Promyelocytes % (Manual) 0 Blast Cells % (Manual) 0 Reactive Lymphocytes 0 Platelet Estimate Adequate Anisocytosis (manual) Slight Microcytosis Slight Sodium Level 133 mmol/L (136-145) Potassium Level 3.6 mmol/L (3.5-5.1) Chloride Level 100 mmol/L (98-107) Carbon Dioxide Level 23 mmol/L (20-31) Anion Gap 10 (5-15) Blood Urea Nitrogen 7 mg/dL (9-23) BUN/Creatinine Ratio 9.9 (10.0-20.0) Serum Glucose 98 mg/dL (74-106) Calcium Level 9.2 mg/dL (8.7-10.4) Test 07/15/24 10:02 07/14/24 13:40 07/14/24 05:26 07/13/24 19:45 Total Bilirubin 1.1 mg/dL (0.2-1.0) Aspartate Amino Transferase (AST) 73 U/L (13-40) Alanine Aminotransferase (ALT) 57 U/L (7-40) Alkaline Phosphatase 47 U/L (46-116) Total Protein 5.9 g/dL (5.7-8.2) Albumin 3.2 g/dL (3.2-4.8) Erythrocyte Sedimentation Rate 60 mm/hr (0-20) C-Reactive Protein High Sensitivity 14.80 mg/dL (<1.0) Hepatitis B Surface Antigen Negative (Negative) Hepatitis C Antibody Negative (Negative) Vitamin D 25-Hydroxy 5.1 ng/mL (.) 25-Hydroxy Vitamin D2 <1.0 ng/mL (.) 25-Hydroxy Vitamin D3 5.1 ng/mL (.) Test 07/13/24 18:42 07/13/24 05:58 07/12/24 22:47 07/12/24 22:20 POC Glucose 98 mg/dl (70-106) Vitamin B12 Level 1067 pg/mL (211-911) Thyroid Stimulating Hormone (TSH) 2.40 uIU/mL (0.55-4.78) Urine Color Yellow (Yellow) Urine Clarity Clear (Clear) Urine pH 6.0 (5.0-9.0) Urine Specific [place] 1.023 (1.001-1.035) Urine Protein 1+ (Negative) Urine Ketones 1+ (Negative) Urine Blood Trace /uL (Negative) Urine Nitrite Negative (Negative) Urine Bilirubin 1+ (Negative) Urine Urobilinogen 12 mg/dL (Negative) Urine Leukocyte Esterase Negative /uL (Negative) Urine RBC 1 /hpf (0 - 3) Urine WBC 1 /hpf (0 - 3) Urine Squamous Epithelial Cells Few /hpf (<5) Urine Bacteria None seen /hpf (None Seen) Urine Glucose Normal mg/dL (Normal) Lactic Acid Level 2.3 mmol/L (0.4-2.0) Test 07/12/24 20:12 Ammonia 24 umol/L (11-32) Troponin I High Sensitivity 25 ng/L (</=54) Plasma/Serum Blood Alcohol < 3.0 mg/dL (<10) Other Laboratory Tests 07/21/24 04:29 07/18/24 06:37 Brief Hx & Hospital Course: History of Present Illness 73-year-old male with past medical history of hypertension hyperlipidemia comes to the ED for evaluation of a fall patient states that while he was walking he slipped and fell reporting multiple injuries which occurred approximately 3 days ago patient reports pain in his head his neck his knee as well as reporting pain in his chest but does not describe the pain is cardiac in nature patient was evaluated in the ED suspected to be acutely intoxicated at the time plan as of now is for further evaluation and acute management and possible monitoring for acute alcohol withdrawal. Course of hospitalization: Patient was initially treated with banana bag, Librium, p.r.n. IV Ativan for questionable withdrawals. The following day after admission, the patient continued to have severe lethargy. It was noted that the patient became febrile. Bradley cultures were performed with the patient. Repeat CBC revealed leukocytosis. The patient was started on empiric antibiotic therapy with cefepime and vancomycin. The patient was also started on IV hydration. Bradley CT scan of the chest, abdomen, pelvis was negative for any acute pathology. Patient also had negative CT scan of the head upon arrival to the emergency room. Clinically, the patient was now alert and oriented. He was tolerating oral intake. All cultures has been negative, febrile as have been absent, with the patient stating that he feels better. Physical therapy was initiated with the patient only ambulating approximately 8 ft. Multiple calls have been made with the patient's family, specifically the son named Jh with no response. Social service consultation was consulted regarding placement for half-way facility. Patient will be discharged today for continuation of physical therapy as well as assistance with his ADLs. Given the patient's course of hospitalization, antibiotic therapy we will stopped at the time of discharge. The patient was agreeable with discharge plan. All questions answered. Physical examination General: Alert and Oriented x3. No acute distress. Well-nourished. Eyes: EOMI. Anicteric. HENT: Moist mucous membranes. Lungs: Clear to auscultation bilaterally. No accessory muscle use. Cardiovascular: Regular rate and rhythm. No murmur. No JVD. Abdomen: Soft, non-tender and non-distended. No palpable masses. Extremities: No edema. Non-tender. Skin: No rashes or lesions. Warm. Neurologic: No focal neurological deficits. CN II-XII grossly intact, but not individually tested. Psychiatric: Cooperative. Appropriate mood and affect. Total time spent with patient discussing and formulating plan of care: 35 minutes. This medical document was created using an electronic medical record system with [employer] dictation system. Although this document has been carefully reviewed, there may still be some phonetic and typographical errors. These areas are purely typographical due to imperfections of the software programs, and do not reflect any compromise in the patient's medical care. Condition at Discharge: Fair Final Diagnosis/Problems List Sepsis, unknown origin Secondary Diagnosis: -probable toxic metabolic encephalopathy secondary to EtOH versus Librium -accelerated hypertension -microcytic, hypochromic anemia -thrombocytopenia -reported EtOH history -hypokalemia -sepsis, unknown etiology Discharge Disposition: [facility] Discharge Instruct/Medications Diet: Regular Activity: No Restrictions, As Tolerated Medications: Refer to medication reconciliation form 36 Discharge Statement: "Patient was advised to return to the ER or call 911 if any headaches, dizziness, shortness of breath, chest pain, abdominal pain, bleeding, fevers, or worsening of medical condition. Patient was counseled about treatment plan, medications, possible side effects, patientverbalized understanding. All questions were answered to the best of my ability. This discharge took greater then 30 minutes in planning, reviewing documentation, counseling the patient, and discussing with other team members." ASSESSMENT ASSESSMENT Assessment Sepsis, unknown origin Date of Service: Jul 21, 2024 Billing Provider: JOY SILVA NP Common Visit Codes: 03675-TRN/OBS DISCH DAY >30min JOY SILVA NP Jul 21, 2024 13:40
[2024-07-21] MEDS: VANCOMYCIN 1GM/250ML KIT 250 ML IV SCH (14:43)
[2024-07-21 14:59] VITALS: BP 126/80; PULSE 76; RESP 20; TEMP 97.9; O2SAT 94
== END 2024-07-21 16:40 | DRG 871 ==
LOC: ER 19:05 → EDBD 19:05 → OVERFLOW 23:42 → WEST WING 07-13 22:14
PROVIDERS: ADMIT Hospitalist; ATTEND Nurse Practitioner Acute Care
DX: A41.9 Sepsis, unspecified organism (principal); G92.8 Other toxic encephalopathy; E87.1 Hypo-osmolality and hyponatremia; E87.20 Acidosis, unspecified; E87.6 Hypokalemia; F10.129 Alcohol abuse with intoxication, unspecified; Y90.9 Presence of alcohol in blood, level not specified; E78.5 Hyperlipidemia, unspecified; E80.6 Other disorders of bilirubin metabolism; D69.6 Thrombocytopenia, unspecified; I10 Essential (primary) hypertension; D50.9 Iron deficiency anemia, unspecified; I16.0 Hypertensive urgency; Z74.01 Bed confinement status
CPT/HCPCS: 36415; 70450; 71045; 71260; 72125; 73562; 74177; 76705; 80048; 80053; 80202; 80320; 81001; 82140; 82306; 82565; 82607; 82962; 83605; 84443; 84484; 85007; 85025; 85027; 85652; 86141; 86803; 87040; 87086; 87340; 93005; 94640; 97110; 97116; 97163; 97530; G0378; J0692; J2003; J3480